=== PATIENT | male | born 1955 | race Caucasian/White ===

== ENCOUNTER 2016-10-13 09:28 | Day surgery (SDC) | payer MEDICARE, MEDICAID ==
[~2016-10-13] VITALS: Ht 188 cm; Wt 86.2 kg
[~2016-10-13 09:28] MED LIST: ACETAMINOPHEN500 M3 PO; ADVAIR 250/5028 PUFF IN; ALIGN4 MG PO; ANTACID PO; ASPIRIN325 M1 PO; ATENOLOL50 MG PO; BENZTROPINE 1MG1 MG PO; BENZTROPINE MESY1 MG PO; BUSPAR 5MG TAB5 MG PO; BUSPIRONE HCL15 MG PO; CARDURA 1MG TAB1 MG PO; COGENTIN GENERIC1 MG PO; COMBIVENT INH14.7 GM IN; CORTISPORIN OTI10 M1 OT; DIAZEPAM2 MG PO; DOXAZOSIN 4MG TA4 MG PO; DULCOLAX 5MG TAB5 MG PO; Docusate Sodiu100 MG PO; FLEXERIL10 MG PO; FLONASE 50 MCG16 GM; FLUTICASONE 50M16 GM; IBUPROFEN800 MG PO; IMODIUM 2MG. CAP2 MG PO; LIDODERM 5% PA1 EACH TD; LIPITOR10 MG PO; LISINOPRIL 5MG T5 MG PO; LOPERAMIDE2 MG PO; LORATADINE 10MG10 M1 PO; LORTAB 5/500 501 TAB PO; LYRICA300 MG PO; MIRALAX(PO17 GM/1 PA PO; MIRALAX17 GM PO; NAPROXEN SODIU500 MG PO; NORCO 325 MG-51 TAB PO; OMNICEF 300 MG300 MG PO; OSCAL 500MG. T500 MG PO; PERCOCET1 TA1 PO; PERPHENAZINE4 MG PO; PLAVIX 75MG TAB75 MG PO; PREDNISONE 10MG10 MG PO; PREDNISONE 20MG20 MG PO; PROAIR HFA0.09 MG/AC IH; PROMETHAZINE25 M1 PO; PROSCAR 5MG TABL5 MG PO; RISPERDAL 1 MG T1 MG PO; RISPERDAL3 MG PO; RISPERIDONE2 M1 PO; ROBAFEN100 MG/5 M PO; ROBITUSSIN DM S10 ML NG; SALMETEROL-F28 PUFFS IN; SEPTRA DS 800 M1 TAB PO; SEROQUEL 100MG100 MG PO; SIME PO; SYMBICORT1 AE1 IH; TRAMADOL 50MG T50 MG PO; TRAZODONE100 MG PO; Tramadol HCl50 MG PO; VALIUM 2MG TABLE2 MG PO; VENLAFAXINE225 MG PO; VISTARIL25 MG PO; VISTARIL50 MG PO; VITAMIN B COMPL1 CAP PO; ZANAFLEX4 MG NG; ZANAFLEX4 MG PO; ZANTAC 150150 MG PO; ZANTAC 300300 MG PO; ZITHROMAX Z-PA250 M2 PO; [UNRECOGNIZED DRUG - CODE] PO
[2016-10-13 11:25] LABS: BUN 5 mg/dL (7-18); GFR (ESTIMATED) 137 ML/MIN (>60)
--- NOTE | 2016-10-13 14:31 | Operative Note ---
Procedure/Operative Record Date of Procedure: 10/13/16 Referring physician: Dr. Roach Pre-op diagnosis: 1. Trigger finger, LEFT middle finger 2. Trigger finger, LEFT ring finger Post-op diagnosis: 1. Trigger finger, LEFT middle finger 2. Trigger finger, LEFT ring finger Procedure performed: 1. Release A1 aleyda (trigger finger), LEFT middle finger 2. Release A1 aleyda (trigger finger), LEFT ring finger Surgeon: CIRA MEDINA,MINGO OSMAN Tire Molder(s): Millie Curran Anesthesia: [place]o's block with IV sedation Indications: Patient is a 61-year-old gentleman with recurrent triggering of his LEFT middle and ring fingers. He had symptoms for over one year which failed to respond satisfactorily to conservative management including steroid injections. As the patient failed to respond adequately to conservative management and reports significant pain, disability and dysfunction with his LEFT hand surgical release of the A1 pulleys was necessary to relieve symptoms, improve function and decrease the pain and to prevent permanent stiffness and damage. Findings: The intraoperative findings showed very thickened and inflamed A1 pulleys of both middle and ring fingers. Also there was synovitis of the flexor tendon sheath. The flexors tendons are thickened and somewhat degenerate but there is no complete tear. There was no evidence of any space-occupying lesions over the tendons or within the A1 pulleys. Description of procedure: On the day of the surgery the patient was met in the preoperative area. Patient was positively identified and the operative site was marked and initialed by me. A physical examination was performed and the chart was updated. I again discussed the procedure, risks and benefits and alternatives with the patient. The complications discussed include but are not limited to- infection, injury to nerves, tendons and blood vessels, incisional scar (cosmesis), scar tenderness/ contracture, DVT/PE, finger stiffness, bowstringing of the tendons, CRPS ( complex regional pain syndrome- pain, sensory and temperature changes, swelling and stiffness), painful scar, incomplete relief of pain, incomplete return of function, recurrence and likely need for further surgery in future and also the risks of anesthesia including heart attack, stroke, and even . I have discussed how there is a small but real possibility of loss of use of the arm, loss of the limb [amputation] or loss of life itself. I have also explained how additional surgery may be required if there are any complications or recurrence. We have also discussed the postoperative recovery and rehabilitation required, the likely need for hand therapy, the possibility of stiffness, chronic pain and we've also discussed the option of nonsurgical treatment. We have also discussed the anesthetic options which include local, regional and general. Patient expressed a preference for a regional Juan Carlos's block. Patient asked appropriate questions and all have been answered by me. Patient wished to proceed with the surgery. Consent form was reviewed and signed. The patient was brought to the operating room and placed supine on the operating table. The LEFT upper extremity was placed over a side table. All the bony prominences were well-padded. A well-padded double cuff tourniquet was placed over the LEFT upper arm and the limb was exsanguinated with the Esmarch bandage and tourniquet was inflated to 250 mmHg. A Biers block was administered by the technical training instructor. Please see nursing records for the total tourniquet time. The LEFT upper extremity was prepped and draped in the usual sterile fashion. A preprocedure timeout was performed as per hospital policy. The skin incisions were marked separately for each finger just distal to the distal palmar crease. Next, a transverse incision approximately 1.5 cm in length was made just distal to the distal palmar crease, in line with the medial finger. Dissection was carried down through the subcutaneous fat down to the level of the flexor tendon sheath with care taken to identify and protect the neurovascular bundles. The sheath was opened under direct vision with a scalpel, and then a scissor was used to release it under direct vision from the proximal extent of the A1 aleyda to just proximal to the proximal digital crease. The flexor tendon sheath was noted to be very inflamed and thickened. After incision of the A1 aleyda, the finger was taken through a full range of motion. The tendons were identified and atraumatically pulled to ensure that no triggering remained. No further triggering or locking was noted. We then performed a similar procedure for the ring finger and released the A1 aleyda completely. Again the flexor tendons were noted to be thickened and there was synovitis of the flexor tendon sheath. The finger was taken through a range of motion and no further triggering was noted. The patient was asked to actively flex and extend his fingers, and he did not note any catching or locking. Both the wounds were then thoroughly irrigated with normal saline. The tourniquet was deflated. Meticulous hemostasis was obtained with bipolar electrocautery. The skin incisions were closed with 5-0 nylon sutures. The skin and soft tissue around the incision were then infiltrated with 10 mL of 0.5 percent Marcaine for postoperative pain relief. Sterile dressings and a compression bandage was applied. The tourniquet cuff was removed from the arm. The patient was then transferred onto the [facility] and transported to the postoperative recovery area in stable condition. The swab, instrument and needle counts were correct according to the scrub team at the end of the procedure. Patient tolerated the procedure well and there were no immediate complications. Patient was discharged home with appropriate written instructions after a period of observation in the postoperative area. Follow-up in my office in 2-3 days time for change of dressings and then in 10-14 days time for removal of sutures. EBL (ml): 5 Implant: None Complications: None Specimens: None
[2016-10-13 14:38] VITALS: BP 169/100
[2016-10-15] MEDS ORDERED: ASPIRIN 81MG TA81 MG PO (02:48)
[2016-10-15] MEDS ORDERED: BUSPIRONE HCL15 MG PO (02:49)
[2016-10-15] MEDS ORDERED: CARDURA 4MG TABL4 MG PO (02:53)
[2016-10-15] MEDS ORDERED: QUETIAPINE FUM400 MG PO (08:48)
[2016-10-15] MEDS ORDERED: CARBAMAZEPINE200 M1 PO (08:53)
[2016-10-15] MEDS ORDERED: DITROPAN XL10 M1 PO (08:55)
[2016-10-15] MEDS ORDERED: ATIVAN1 MG PO (08:56)
[2016-10-15] MEDS ORDERED: TRAMADOL 50MG T50 M1 PO (08:56)
[2016-10-15] MEDS ORDERED: FLONASE 50 MCG16 GM NS (08:58)
[2016-10-15] MEDS ORDERED: HYDROCODONE-APA1 TA1 PO (10:36)
[2016-10-15] MEDS ORDERED: BACTROBAN2% TP (10:39)
[2016-10-15] MEDS ORDERED: GERI-LANTA355 ML PO (10:40)
[2016-10-15] MEDS ORDERED: MAGMTHWSH PO (10:42)
[2016-10-15] MEDS ORDERED: OXCARBAZEPINE600 M1 PO (10:43)
== END 2016-10-13 14:11 | disposition home or self-care (01) ==
LOC: SDC 09:28
PROVIDERS: Orthopaedic Surgery
DX: M65.332 Trigger finger, left middle finger (principal); M65.342 Trigger finger, left ring finger

== ENCOUNTER 2017-01-02 07:52 | Emergency (ER) | payer MEDICARE, MEDICAID ==
[~2017-01-02] VITALS: Ht 188 cm; Wt 81.2 kg
[~2017-01-02 07:52] MED LIST changes: +ASPIRIN 81MG TA81 MG PO; +ATIVAN1 MG PO; +BACTROBAN2% TP; +CARBAMAZEPINE200 M1 PO; +CARDURA 4MG TABL4 MG PO; +DITROPAN XL10 M1 PO; +FLONASE 50 MCG16 GM NS; +FUROSEMIDE40 MG PO; +GERI-LANTA355 ML PO; +HYDROCODONE-APA1 TA1 PO; +KEFLEX 500MG.500 MG PO; +MAGMTHWSH PO; +OXCARBAZEPINE600 M1 PO; +QUETIAPINE FUM400 M2 PO; +QUETIAPINE FUM400 MG PO; +TRAMADOL 50MG T50 M1 PO
--- OUTSIDE RECORDS SUMMARY | 2017-01-02 08:18 | External Medical Summary Rpt ---
Demographics Preferred Language Irish Marital Status Unknown Advent Affiliation Unknown Race Unknown Ethnic Group Unknown Author Author , ASHLYN FRANCOIS Address Unknown Phone Immunization Unable to retrieve immunization data due to connection failure with Immunization Registry. Please try again later.
--- OUTSIDE RECORDS SUMMARY | 2017-01-02 08:18 | External Medical Summary Rpt ---
Demographics Preferred Language Sinhala Marital Status Unknown Spiritism Affiliation Unknown Race Unknown Ethnic Group Unknown Author Author , ASHLYN FRANCOIS Address Unknown Phone Immunization Unable to retrieve immunization data due to connection failure with Immunization Registry. Please try again later.
--- OUTSIDE RECORDS SUMMARY | 2017-01-02 08:18 | External Medical Summary Rpt ---
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 Name Role Phone Ling Garcia MD, Unavailable Unavailable Ling Garcia MD Purpose Continuity of Care Document - 02-10-2013 through 2016 Problems Code Diagnosis DOS Provider Status 305.1 305.1 06-28-2013 Herbie TOBACCO USE [facility] 401.9 401.9 06-28-2013 Herbie HYPERTENSIO [facility] [id number] CHR 06-28-2013 Herbie AIRWAY [phone] 06-28-2013 Herbie CONTUSION [facility] FACE/SCALP/ Hospital NCK E849.7 E849.7 06-28-2013 Herbie ACCID IN [facility] INSTIT E885.9 E885.9 FALL 06-28-2013 Herbie FROM [facility] SLIPPING, Hospital TRIPPING, OR STUMBLING NEC 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[place], 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 I25.83 Coronary atheroscler osis due to lipid rich plaque [id number] J44.1 CHRONIC OBSTRUCTIVE PULMONARY DISEASE W (ACUTE) EXACERBATIO N K56.7 ILEUS, UNSPECIFIED L72.3 SEBACEOUS CYST R07.9 CHEST PAIN, UNSPECIFIED R10.9 UNSPECIFIED ABDOMINAL PAIN S00.91XA ABRASION OF UNSPECIFIED PART OF HEAD, INITIAL ENCOUNTER S00.93XA CONTUSION OF UNSPECIFIED PART OF HEAD, INITIAL ENCOUNTER S16.1XXA STRAIN OF MUSCLE, FASCIA AND TENDON AT NECK LEVEL, INIT W19.XXXA UNSPECIFIED FALL, INITIAL ENCOUNTER Z01.810 Encounter for preprocedur al cardiovascu lar examination Z01.818 ENCOUNTER FOR OTHER PREPROCEDUR AL EXAMINATION Z95.5 Presence of coronary angioplasty implant and graft Allergies, Adverse Reactions, Alerts Type Allergy to substance Drug Allergy Adverse Reaction to Substance Substance Reaction Severity STAFLEX ITCHING Unknown [place] I-RASH Mild Ketorolac I-ITCHING Mild Phenyltoloxamine I-ITCHING Unknown Medications Na ND Rx Da Fi Fi Am Da Di Ph RX Ph St me C No te ll ll ou ys ag ar # ys at rm s nt no ma ic us Or Da si cy ia de te s n re d SO 00 09 0 No DI 40 -0 UM 97 6- Lo 98 20 ng CH 30 13 er LO 9 RI Ac DE ti ve 0. 9% SO SHADY TI ON Sa 63 09 0 No li 80 -0 ne 70 6- Lo 10 20 ng Fl 07 13 er us 5 h Ac 10 ti ML ve Sy ri ng e HY [address] 40 -0 OC 60 6- Lo OD 36 20 ng ON 66 13 er -A 2 CE Ac TA ti NH ve NO PH 7. 5- 32 5 Vital Signs 06-28-2013 23:40 Name Value Interpretat Reference Comment ion Range Body 98.2 [degF] Temperature BP 76 mm[Hg] Diastolic BP Systolic 134 mm[Hg] Heart 88 /min Rate/Pulse O2% 92 % Respiratory 20 /min Rate 06-28-2013 22:59 Name Value Interpretat Reference Comment ion Range BP 94 mm[Hg] Diastolic BP Systolic 162 mm[Hg] Heart 72 /min Rate/Pulse O2% 96 % Respiratory 20 /min Rate 02-10-2013 13:26 Name Value Interpretat Reference Comment ion Range Body 97.8 [degF] Temperature BP 104 mm[Hg] Diastolic BP Systolic 149 mm[Hg] Heart 70 /min Rate/Pulse O2% 95 % Respiratory 20 /min Rate 02-10-2013 10:50 Name Value Interpretat Reference Comment ion Range BP 42 mm[Hg] Diastolic BP Systolic 114 mm[Hg] Heart 76 /min Rate/Pulse O2% 95 % Respiratory 20 /min Rate Results Labs Lab Lab Date Result Refere Interp Status Commen Order Detail nces retati t Range on Differential panel, method unspecified - (12-10-2016 06:00) LYMPH 16 % 10% - Normal complet 017 50% ed 06:00 Platele NORMAL complet ts 017 ed [Presen 06:00 ce] in Blood by Light microsc opy COMPREHENSIVE METABOLIC PANEL (02-10-2013 10:45) Glucose 114 74-106 complet 013 mg/dL ed Bld-mCn 10:45 c BUN 5 mg/dL 7-18 complet Bld-mCn 013 ed c 10:45 Creat 1.0 0.8-1.3 complet SerPl-m 013 mg/dL ed Cnc 10:45 ESTIMAT 114 50-200 complet ED 013 ML/MIN ed CREATIN 10:45 INE CLEARAN CE GFR 77 Greater complet (ESTIMA 013 ML/MIN than ed SHANNON) 10:45 60 Sodium 139 136-145 complet SerPl-s 013 mmoL/L ed Cnc 10:45 Potassi 3.9 3.5-5.1 complet um 013 mmoL/L ed SerPl-s 10:45 Cnc Chlorid 100 98-107 complet e 013 mmoL/L ed SerPl-s 10:45 Cnc CO2 30 21.0-32 complet SerPl-s 013 mmoL/L .0 ed Cnc 10:45 Calcium 8.9 8.5-10. complet 013 mg/dL 1 ed SerPl-m 10:45 Cnc Prot 7.4 6.4-8.2 complet SerPl-m 013 gm/dL ed Cnc 10:45 Albumin 4.3 3.4-5.0 complet 013 gm/dL ed SerPl-m 10:45 Cnc Globuli 3.1 1.3-3.2 complet n 013 gm/dL ed Ser-mCn 10:45 c Albumin 1.4 UNK 1.1-1.8 complet /Glob 013 ed SerPl-m 10:45 Rto Bilirub 0.5 0.2-1.0 complet 013 mg/dL ed SerPl-m 10:45 Cnc AST 19 U/L 15-37 complet SerPl-c 013 ed Cnc 10:45 ALT 30 U/L 30-65 complet SerPl-c 013 ed Cnc 10:45 ALP 136 U/L 50-136 complet SerPl-c 013 ed Cnc 10:45 CBC with AUTO DIFF (02-10-2013 10:45) WBC # 09-06-2 6.7 4.8-10. complet Bld 013 K/MM3 8 ed Auto 10:45 RBC # 09-06-2 5.86 4.6-6.2 complet Bld 013 M/mm3 ed Auto 10:45 Hgb -06-2 18.3 14.1-18 High complet Bld-mCn 013 g/dL .0 alert ed c 10:45 Hct Fr -06-2 53.7 % 42.0-52 complet Bld 013 .0 ed 10:45 MCV RBC -06-2 91.7 fl 82.2-97 complet 013 .8 ed 10:45 MCH RBC -06-2 31.2 pg 27-31.2 complet Qn 013 ed Auto 10:45 MEAN -06-2 34.0 31.8-35 complet CORPUSC 013 g/dl .4 ed ULAR 10:45 HGB CONC RDW RBC -06-2 15.7 % 11.5-17 complet Auto 013 .5 ed 10:45 Platele -06-2 163 142-424 complet t Bld 013 K/mm3 ed Ql 10:45 Manual MEAN -06-2 8.5 fl 7.4-10. complet PLATELE 013 4 ed T 10:45 VOLUME Granulo -06-2 75.2 % 37.0-80 complet cytes 013 .0 ed Fr Bld 10:45 Auto LYMPH % 09-06-2 15.5 % 10-50 complet 013 ed 10:45 Monocyt -06-2 6.1 % 1.7-9.3 complet es Fr 013 ed Bld 10:45 Auto Eosinop 09-06-2 2.1 % 0.1-12. complet hil Fr 013 0 ed Bld 10:45 Auto Basophi 09-06-2 0.9 % 0.1-2.0 complet ls Fr 013 ed Bld 10:45 Auto Granulo 09-06-2 5.1 1.3-8.0 complet cytes # 013 K/mm3 ed Bld 10:45 Auto Lymphoc 09-06-2 1.0 0.7-4.5 complet ytes Fr 013 K/mm3 ed Bld 10:45 Auto Monocyt 09-06-2 0.4 0.1-1.0 complet es # 013 K/mm3 ed Bld 10:45 Auto Eosinop 0.1 0.0-0.4 complet hil # 013 K/mm3 ed Bld 10:45 Auto Basophi 0.1 0-0.2 complet ls # 013 K/MM3 ed Bld 10:45 Auto Encounters Encounter Start End Date Code Location Performer Type Date Emergency MANAV Garcia MD (ER) 4 22:23 4 23:42 [facility] Emergency MANAV BRIONES (ER) 3 10:44 3 13:55 [facility] ORIANA
--- OUTSIDE RECORDS SUMMARY | 2017-01-02 08:18 | External Medical Summary Rpt ---
Author Author , ALESSANDRO FRANCOIS Address Unknown Phone [email or web address] Care Team Providers Care Reverberatory Skimmer Name Role Phone Ling Garcia MD, Unavailable Unavailable Ling Garcia MD Purpose Continuity of Care Document - 02-10-2013 through 2016 Problems Code Diagnosis DOS Provider Status 305.1 305.1 06-28-2013 Herbie TOBACCO USE [facility] 401.9 401.9 06-28-2013 Herbie HYPERTENSIO [facility] [phone] CHR 06-28-2013 [facility]bie [phone] 06-28-2013 Herbie CONTUSION [facility] FACE/SCALP/ Hospital NCK E849.7 E849.7 06-28-2013 Herbie ACCID IN [facility] INSTIT E885.9 E885.9 FALL 06-28-2013 Herbie FROM [facility] SLIPPING, Hospital TRIPPING, OR STUMBLING NEC 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 5- 32 5 [...] Garcia MD (ER) 4 22:23 4 23:42 [facility] Emergency MANAV BRIONES (ER) 3 10:44 3 13:55 [facility] ORIANA
--- OUTSIDE RECORDS SUMMARY | 2017-01-02 08:19 | External Medical Summary Rpt ---
Author Author ALESSANDRO Pennington, [employer] Organization [employer] Address Unknown Phone Unavailable Results CBC W Auto Differential panel in Blood Observa Value Referen Units Interpr Notes Date tion ce etation Range Basophils 0 - 0.2 K/MM3 Normal No Dec 10 informati 2016 6:00 [#/volume on in AM ] in source Blood by data Automated count Basophils 0.1 - 2.0 % Normal No Dec 10 informati 2016 6:00 leukocyte on in AM s in source Blood by data Automated count Eosinophi 0.0 - 0.4 K/mm3 Normal No Dec 10 ls informati 2016 6:00 [#/volume on in AM ] in source Blood by data Automated count Eosinophi 0.1 - % Normal No Dec 10 ls/100 12.0 informati 2016 6:00 leukocyte on in AM s in source Blood by data Automated count Granulocy 1.3 - 8.0 K/mm3 High No Dec 10 jany informati 2017 6:00 [#/volume on in AM ] in source Blood by data Automated count Granulocy 37.0 - % High No Dec 10 jany/100 80.0 informati 2016 6:00 leukocyte on in AM s in source Blood by data Automated count Hematocri 42.0 - % Normal No Dec 10 t [Volume 52.0 informati 2016 6:00 on in AM Fraction] source of Blood data Hemoglobi 14.1 - g/dL Normal No Dec 10 n 18.0 informati 2016 6:00 [Mass/vol on in AM ume] in source Blood data Lymphocyt 0.7 - 4.5 K/mm3 Normal No Dec 10 es informati 2016 6:00 [#/volume on in AM ] in source Unspecifi data ed specimen by Automated count Lymphocyt 10 - 50 % Low No Dec 10 es informati 2016 6:00 [#/volume on in AM ] in source Unspecifi data ed specimen by Automated count Erythrocy 27 - 31.2 pg Normal No Dec 10 te mean informati 2016 6:00 corpuscul on in AM ar source hemoglobi data n [Entitic mass] Erythrocy 31.8 - g/dl Normal No Dec 10 te mean 35.4 informati 2016 6:00 corpuscul on in AM ar source hemoglobi data n concentra tion [Mass/vol ume] by Automated count Erythrocy 82.2 - fl Normal No Dec 10 te mean 97.8 informati 2016 6:00 corpuscul on in AM ar volume source [Entitic data volume] by Automated count Monocytes 0.1 - 1.0 K/mm3 Normal No Dec 10 inform2016 6:00 [#/volume on in AM ] in source Blood by data Automated count Monocytes 1.7 - 9.3 % Normal No Dec 10 informati 2016 6:00 leukocyte on in AM s in source Blood by data Automated count Platelet 7.4 - fl Low No Dec 10 mean 10.4 informati 2016 6:00 volume on in AM [Entitic source volume] data in Blood by Automated count Platelets 142 - 424 K/mm3 Normal No Dec 10 informati 2016 6:00 [#/volume on in AM ] in source Blood data Erythrocy 4.6 - 6.2 M/mm3 Normal No Dec 10 jany informati 2016 6:00 [#/volume on in AM ] in source Amniotic data fluid Erythrocy 11.5 - % Normal No Dec 10 te 17.5 informati 2017 6:00 distribut on in AM ion width source [Entitic data volume] by Automated count Leukocyte 4.8 - K/MM3 Normal No Dec 10 s 10.8 informati 2016 6:00 [#/volume on in AM ] in source Blood data Differential panel, method unspecified - Observa Value Referen Units Interpr Notes Date tion ce etation Range Neutrophi 0 - 8 % Normal No Dec 10 ls.band informati 2017 6:00 form/100 on in AM leukocyte source s in data Blood by Automated count LYMPH 16 10 - 50 % Normal No Dec 10 inform2016 tion in 6:00 AM source data Monocytes 2 - 9 % Normal No Dec 10 informati 2016 6:00 leukocyte on in AM s in source Blood by data Automated count Platele NORMAL No No No No Dec 10 ts informa informa informa informa 2016 [Presen tion in tion in tion in tion in 6:00 AM ce] in source source source source Blood data data data data by Light microsc opy Neutrophi 42 - 76 % High No Dec 10 ls informati 2016 6:00 [#/volume on in AM ] in source Blood by data Automated count Cells No #CELLS No No Dec 10 Counted informati informati informati 2017 6:00 Total [#] on in on in on in AM in Blood source source source data data data Basic metabolic panel in Blood Observa Value Referen Units Interpr Notes Date tion ce etation Range Urea 7 - 18 mg/dL Low No Dec 10 nitrogen informati 2016 6:00 [Mass/vol on in AM ume] in source Serum or data Plasma Calcium 8.5 - mg/dL Normal No Dec 10 [Mass/vol 10.1 informati 2016 6:00 ume] in on in AM Serum or source Plasma data Chloride 98 - 107 mmoL/L Low No Dec 10 [Moles/vo informati 2016 6:00 lume] in on in AM Serum or source Plasma data Carbon 21.0 - mmoL/L Normal No Dec 10 dioxide, 32.0 informati 2016 6:00 total on in AM [Moles/vo source lume] in data Serum or Plasma Creatinin 0.70 - mg/dL Low No Dec 10 e 1.30 informati 2016 6:00 [Mass/vol on in AM ume] in source Serum or data Plasma Creatinin 50 - 200 ML/MIN No No Dec 10 e renal informati informati 2017 6:00 clearance on in on in AM source source predicted data data by Cockcroft -Gault formula Estimated >60 ML/MIN No REFERENCE Dec 10 informati RANGE: 2017 6:00 glomerula on in >60 AM r source ML/MIN/1. filtratio data 73 SQUARE n rate METERSIf (GF this patient is -A merican, then multiply theresult by 1.210. Glucose 74 - 106 mg/dL Normal No Dec 10 [Mass/vol informati 2016 6:00 ume] in on in AM Serum or source Plasma data Potassium 3.5 - 5.1 mmoL/L Normal No Dec 10 informati 2017 6:00 [Moles/vo on in AM lume] in source Serum or data Plasma Sodium 136 - 145 mmoL/L Low No Dec 10 [Moles/vo informati 2016 6:00 lume] in on in AM Serum or source Plasma data CBC W Auto Differential panel in Blood Observa Value Referen Units Interpr Notes Date tion ce etation Range Basophils 0 - 0.2 K/MM3 Normal No Dec 092016 2:50 [#/volume on in AM ] in source Blood by data Automated count Basophils 0.1 - 2.0 % Normal No Dec 09 /100 informati 2016 2:50 leukocyte on in AM s in source Blood by data Automated count Eosinophi 0.0 - 0.4 K/mm3 Normal No Dec 09 ls 2016 2:50 [#/volume on in AM ] in source Blood by data Automated count Eosinophi 0.1 - % Normal No Dec 09 ls/100 12.0 informati 2016 2:50 leukocyte on in AM s in source Blood by data Automated count Granulocy 1.3 - 8.0 K/mm3 Normal No Dec 09 jany 2016 2:50 [#/volume on in AM ] in source Blood by data Automated count Granulocy 37.0 - % High No Dec 09 jany/100 80.0 ati 2016 2:50 leukocyte on in AM s in source Blood by data Automated count Hematocri 42.0 - % Low No Dec 09 t [Volume 52.0 ati 2016 2:50 on in AM Fraction] source of Blood data Hemoglobi 14.1 - g/dL Low No Dec 09 n 18.0 2016 2:50 [Mass/vol on in AM ume] in source Blood data Lymphocyt 0.7 - 4.5 K/mm3 Normal No Dec 09 es 2016 2:50 [#/volume on in AM ] in source Unspecifi data ed specimen by Automated count Lymphocyt 10 - 50 % Low No Dec 09 es 2016 2:50 [#/volume on in AM ] in source Unspecifi data ed specimen by Automated count Erythrocy 27 - 31.2 pg Normal No Dec 09 te mean informati 2016 2:50 corpuscul on in AM ar source hemoglobi data n [Entitic mass] Erythrocy 31.8 - g/dl Normal No Dec 09 te mean 35.4 informati 2016 2:50 corpuscul on in AM ar source hemoglobi data n concentra tion [Mass/vol ume] by Automated count Erythrocy 82.2 - fl Normal No Dec 09 te mean 97.8 informati 2016 2:50 corpuscul on in AM ar volume source [Entitic data volume] by Automated count Monocytes 0.1 - 1.0 K/mm3 Normal No Dec 09 inform2016 2:50 [#/volume on in AM ] in source Blood by data Automated count Monocytes 1.7 - 9.3 % Normal No Dec 09 inform2016 2:50 leukocyte on in AM s in source Blood by data Automated count Platelet 7.4 - fl Low No Dec 09 mean 10.4 informati 2016 2:50 volume on in AM [Entitic source volume] data in Blood by Automated count Platelets 142 - 424 K/mm3 Normal No Dec 09 informati 2016 2:50 [#/volume on in AM ] in source Blood data Erythrocy 4.6 - 6.2 M/mm3 Normal No Dec 09 jany 2016 2:50 [#/volume on in AM ] in source Amniotic data fluid Erythrocy 11.5 - % Normal No Dec 09 te 17.5 informati 2016 2:50 distribut on in AM ion width source [Entitic data volume] by Automated count Leukocyte 4.8 - K/MM3 Normal No Dec 09 s 10.8 informati 2016 2:50 [#/volume on in AM ] in source Blood data Oxygen saturation in Arterial blood Observa Value Referen Units Interpr Notes ti ce etation Range Oxygen 90 - 100 % Low No Nov 19 saturatio 2016 n in on in 10:52 AM 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 Value Referen Units Interpr Notes ce etation Range VENOUS 80.2 75 - 80 % High No Nov 19 O2 SAT informa 2017 CATH tion in 10:52 LAB source AM data CBC W Auto Differential panel in Blood Observa Value Referen Units Interpr Notes Date tion ce etation Range Basophils 0 - 0.2 K/MM3 Normal No Nov 19 informati 2016 8:25 [#/volume on in AM ] in source Blood by data Automated count Basophils 0.1 - 2.0 % Normal No Nov 19 informati 2016 8:25 leukocyte on in AM s in source Blood by data Automated count Eosinophi 0.0 - 0.4 K/mm3 Normal No Nov 19 ls informati 2016 8:25 [#/volume on in AM ] in source Blood by data Automated count Eosinophi 0.1 - % Normal No Jeremiah 15 ls/100 12.0 informati 2016 8:25 leukocyte on in AM s in source Blood by data Automated count Granulocy 1.3 - 8.0 K/mm3 Normal No Nov 15 jany informati 2016 8:25 [#/volume on in AM ] in source Blood by data Automated count Granulocy 37.0 - % Normal No Nov 15 jany/100 80.0 informati 2016 8:25 leukocyte on in AM s in source Blood by data Automated count Hematocri 42.0 - % Low No Nov 15 t [Volume 52.0 informati 2016 8:25 on in AM Fraction] source of Blood data Hemoglobi 14.1 - g/dL Low No Nov 15 n 18.0 informati 2016 8:25 [Mass/vol on in AM ume] in source Blood data Lymphocyt 0.7 - 4.5 K/mm3 Normal No Nov 15 es informati 2016 8:25 [#/volume on in AM ] in source Unspecifi data ed specimen by Automated count Lymphocyt 10 - 50 % Normal No Nov 15 es informati 2016 8:25 [#/volume on in AM ] in source Unspecifi data ed specimen by Automated count Erythrocy 27 - 31.2 pg Normal No Nov 15 te mean informati 2016 8:25 corpuscul on in AM ar source hemoglobi data n [Entitic mass] Erythrocy 31.8 - g/dl Normal No Nov 15 te mean 35.4 informati 2016 8:25 corpuscul on in AM ar source hemoglobi data n concentra tion [Mass/vol ume] by Automated count Erythrocy 82.2 - fl Normal No Nov 15 te mean 97.8 informati 2016 8:25 corpuscul on in AM ar volume source [Entitic data volume] by Automated count Monocytes 0.1 - 1.0 K/mm3 Normal No Nov 15 informati 2016 8:25 [#/volume on in AM ] in source Blood by data Automated count Monocytes 1.7 - 9.3 % Normal No Nov 15 /100 informati 2016 8:25 leukocyte on in AM s in source Blood by data Automated count Platelet 7.4 - fl Normal No Nov 15 mean 10.4 informati 2016 8:25 volume on in AM [Entitic source volume] data in Blood by Automated count Platelets 142 - 424 K/mm3 Normal No Nov 15 informati 2017 8:25 [#/volume on in AM ] in source Blood data Erythrocy 4.6 - 6.2 M/mm3 Low No Nov 15 jany informati 2017 8:25 [#/volume on in AM ] in source Amniotic data fluid Erythrocy 11.5 - % Normal No Jeremiah 15 te 17.5 informati 2017 8:25 distribut on in AM ion width source [Entitic data volume] by Automated count Leukocyte 4.8 - K/MM3 Normal No Nov 15 s 10.8 informati 2017 8:25 [#/volume on in AM ] in source Blood data Basic metabolic panel in Blood Observa Value Referen Units Interpr Notes Date tion ce etation Range Urea 7 - 18 mg/dL Normal No Nov 15 nitrogen informati 2017 8:10 [Mass/vol on in AM ume] in source Serum or data Plasma Calcium 8.5 - mg/dL Normal No Nov 15 [Mass/vol 10.1 informati 2017 8:10 ume] in on in AM Serum or source Plasma data Chloride 98 - 107 mmoL/L Low No Nov 15 [Moles/vo informati 2017 8:10 lume] in on in AM Serum or source Plasma data Carbon 21.0 - mmoL/L Normal No Nov 15 dioxide, 32.0 informati 2017 8:10 total on in AM [Moles/vo source lume] in data Serum or Plasma Creatinin 0.70 - mg/dL Low No Nov 15 e 1.30 informati 2017 8:10 [Mass/vol on in AM ume] in source Serum or data Plasma Estimated >60 ML/MIN No REFERENCE Jeremiah 15 informati RANGE: 2017 8:10 glomerula on in >60 AM r source ML/MIN/1. filtratio data 73 SQUARE n rate METERSIf (GF this patient is -A merican, then multiply theresult by 1.210. Glucose 74 - 106 mg/dL Normal No Nov 15 [Mass/vol informati 2017 8:10 ume] in on in AM Serum or source Plasma data Potassium 3.5 - 5.1 mmoL/L Normal SLIGHT Nov 19 HEMOLYSIS 2017 8:10 [Moles/vo NOTICED, AM lume] in K MAY BE Serum or FALSELY Plasma ELEVATED. LAB.STJ Sodium 136 - 145 mmoL/L Low No Nov 15 [Moles/vo informati 2017 8:10 lume] in on in AM Serum or source Plasma data ST STRESS TEST LEXISCAN Observa Value Referen Units Interpr Notes Date ti ce etation Range Exercis No No No No Jun 18 e ECG informa informa informa informa 2016 Report\ tion in tion in tion in tion in 10:28 .br\St. source source source source AM data data data data [facility] Alireza Co\.br\ Interpr etive Stateme nts\.br \Stress Test Lexisca n\.br\R didier for Exam: pre-op clearan ce\.br\ Orderin g Diagnos is: pre-op clearan ce\.br\ Resting HR: 64 Peak HR: 79\.br\ Resting B/P 139/81 PeaK B/P 141/81\ .br\Fin dings:\ .br\1. Lexisca n 0.4 mg was given IV push at 30 seconds into protoco l.\.br\ 2. Lexisca n injecti on was done without low level exercis e.\.br\ 3. Termina tion of test due to protoco l complet ion.\.b r\4. Symptom s: slight SOB\.br \5. Aminoph ylline not given.\ .br\6. Resting ECG: Normal sinus rhythm. Indeter minate axis. Otherwi se normal\ .br\ECG .\.br\7 . Non-isc hemic ECG respons e to pharmac ologic stress. \.br\8. Nuclear perfusi on scan result reporte d separat shahriar.\.b r\Elect ronical ly Signed On 06-18-19 16 11:36:5 8 EST by Bry alexis MD NM MYOCARDIAL PERFUSION SPECT STRESS AND REST Observa Value Referen Units Interpr Notes Date ti ce etation Range This No No No No Jun 18 patient informa informa informa informa 2015 tion in in tion in ti in 9:58 AM receive source source source source d an data data data data examina tion at the [facility] are Vascula r Laborat ory.\.b r\The complet e report can be found in the [facility] ([facility]) Electro pat Medical Record of the patient . EC ECHOCARDIOGRAM COMPLETE W DOPPLER AND COLOR FLOW MAPPING Observa Value Referen Units Interpr Notes Date tion ce etation Range This No No No No Paxton 4 patient informa informa informa informa 2016 on in in in ti in 9:08 AM receive source source source source d an data data data data examina tion at the [facility] are Vascula r Laborat ory.\.b r\The complet e report can be found in the [facility] ([facility]) Electro pat Medical Record of the patient .
--- OUTSIDE RECORDS SUMMARY | 2017-01-02 08:19 | External Medical Summary Rpt ---
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 Value Referen Units Interpr Notes ce [...] source source AM data data data data [place]\.br\ Interpr etive Stateme nts\.br \Stress [...] data data data examina tion at the [facility] are Vascula r Laborat ory.\.b r\The complet e report can be found in the [facility] ([facility]) Electro pat Medical Record of the patient [...] data data data examina tion at the [facility] are Vascula r Laborat ory.\.b r\The complet e report can be found in the [facility] ([facility]) Electro pat Medical Record of the patient .
--- NOTE | 2017-01-02 08:24 | Emergency Room Report ---
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 N Clinical Suspician of Infection? N Mental Status: 1 - Regular (Normal Baseline) Sepsis Risk:Low Sepsis Risk Have you (or family members/close friends) recently traveled outside the [place]? N If Yes, where/when: Have you had exposure to infectious disease within the past month? N TB? Other? Specify: Patient brought in by EMS after falling out of bed. He has abrasions to his knees. He takes Plavix. He is c/o knee pain, left pelvis pain, and neck pain. No report of syncope. No new neurological symptoms. ALLERGIES Coded Allergies: ketorolac (From TORADOL) (I-RASH 10/15/16) lithium (I-RASH 10/15/16) Home Medications Active Scripts Bifidobacterium Infantis (Align) 4 MG PO DAILY #30 CAP Prov: 06/30/16 Polyethylene Glycol 3350 (Miralax) 17 GM PO DAILYP PRN CONSTIPATION #30 Prov: 06/30/16 CEPHALEXIN (Keflex 500MG Capsule) 500 MG PO Q8H #21 CAP Prov: 12/10/16 Reported Medications LISINOPRIL (Lisinopril) 5 MG PO DAILY Benztropine Mesylate 1 MG PO BID ATENOLOL (Atenolol 50MG) 50 MG PO DAILY Pregabalin (Lyrica 300MG) 300 MG PO BID CLOPIDOGREL BISULFATE (PLAVIX) 75 MG PO DAILY VENLAFAXINE HCL (Venlafaxine HCl ER) 225 MG PO DAILY Atorvastatin Calcium (Lipitor 10MG) 40 MG PO QHS Acetaminophen (Acetaminophen Extra Strength) 500 MG PO Q6HP PRN PAIN Trazodone Hcl (Trazodone HCl) 100 MG PO QHS Guaifenesin (Robafen) 10 ML PO Q4HP PRN COUGH Doxazosin Mesylate (Doxazosin 4MG Tablet) 4 MG PO BID ASPIRIN (Aspirin) 81 MG PO DAILY Buspirone Hcl 30 MG PO BID Oxybutynin Chloride (Ditropan XL) 10 MG PO QHS Lorazepam (Ativan 1MG) 1 MG PO Q4HP PRN ANXIETY Fluticasone Propionate (Flonase 50 Mcg Nasal [place]) 2 SPRAY NS DAILY Oxcarbazepine 600 MG PO BID Furosemide (Furosemide 40MG) 40 MG PO DAILY Albuterol-Ipratropium (Combivent Inhaler) 1 PUFFS IN QID Oyster Shell (Oscal 500MG Tablet) 500 MG PO BID Finasteride (Proscar 5MG Tablet) 5 MG PO DAILY MAG HYDROX/AL HYDROX/SIMETH (Sm Antacid-Antigas Liquid) 30 ML PO Q4HP PRN ACID/ INDIGESTION BUDESONIDE/FORMOTEROL FUMARATE (Symbicort 160-4.5 Mcg Inhaler) 2 PUFFS IH BID History Medical History General CAD? No Angina: No VT: Yes Hypertension? Yes Hyperlipidemia? Yes CHF? No DVT? No PE? No COPD? Yes Asthma? No Anemia? No GERD? No Gastric ulcers? No GI Bleed? No Hernia? No Thyroid Problems? No Hypothyroidism? No CVA? No Seizures? No Diabetes? No Renal Insuffiency? No End Stage Renal Disease? No UTI? Yes Stones? No BPH? No GB Disease: No Nephritic Syndrome? No Asplenia? No Hepatitis? No Sickle Cell Disease? No Arthritis? Yes Migraines? No Cataracts? No Glaucoma? No MRSA? No HIV? No TB? No Anxiety? Yes Depression? Yes Cancer? No More? No Immunization Hx DT/Tetanus Unknown Flu 2015-FSN Pneumonia Received In Past Surgical Hx Previous Surgery?Y LT KNEE GALLBLADDER STENT BACK SURGERY Family History Family Hx Diabetes Yes CAD Yes Hypertension Yes Hyperlipidemia Yes Cancer Yes TB No Social History Smoking Hx Smoker: Current Every Day Smoker Tobacco: Yes Type Cigarettes Packs/day < 1 Pack Alcohol Alcohol: No Review of Systems All Other Systems Reviewed and Negative Musculoskeletal see HPI Psychiatric/Neurological see HPI Physical Exam Vital Signs Vital Signs Date Time Temp Pulse Resp B/P Pulse O2 O2 Flow FiO2 Ox Delivery Rate 01/02 0940 96.1 70 20 169/95 95 01/02 0756 74 22 177/92 92 General Appearance normal appearance, WD/WN, no apparent distress Eye Exam - bilateral eye normal exam, bilateral eye PERRL, bilateral eye EOMI Neck normal inspection, non-tender, supple, full range of motion, head face and neck atraumatic; subjective neck pain Respiratory Status Yes: trachea midline, chest symmetrical, non tender chest. No: respiratory distress, tender on palpation, use of accessory muscles, pain on inspiration, pain on expiration, productive cough, non productive cough. Lung Sounds bilateral: normal breath sounds, lungs clear. 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 Pelvis stable to AP and lateral palpation. No rotation, no shortening, no crepitus, deformities or stepoffs; FROM all joints with no instability. 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 No Results/Orders Current Medication Orders Sig/Martinez Start time Last Medication Dose Route Stop Time Status Admin Acetaminophen 0 .STK-MED ONE 01/03 0834 DC PO Acetaminophen 650 MG ONCE ONE 01/02 830 DC 01/02 PO 01/02 831 0930 Orders Procedure Date/time Status DIET-NOTHING BY MOUTH 01/02 L Active GUEST TRAY 01/[address] SCAN REQ 01/[address] ABD/PELVIS REQ 01/[address] CHEST W/O CONTRAST 01/[address] CHEST SCAN REQ 01/[address] HEAD REQ 01/02 0816 Complete XRAY/CT/US XRAY/CT/US 1 XRAY chest, knee, pelvis XR interpretation by reviewed by me Xray Results old appearing bone fragment left knee, neg acute fx either knee but w/ pos DJD; CXR and pelvis reveal dilated LOB, will review CT abd/pelvis/ chest CT head (neg acute per [facility]), chest Time results known: 938 CT Results normal/NAD, no fracture seen, no infiltrates XRAY/CT/US [address] interpretation by reviewed by me ([facility] report reviewed), discussed w/ radiologist (also d/w our radiologist) Time results known: 954 CT Results normal/NAD (chronic colonic dilatation) XRAY/CT/US 3 CT C-spine CT interpretation by discussed w/radiologist Time results known: 1142 CT Results normal/NAD, no fracture seen Departure Departure Time of Disposition 1145 Disposition DC Home or Self Care(routine) Clinical Impression Primary Impression: Multiple contusions Secondary Impressions: Abrasion of knee, right Qualifiers: Encounter type: initial encounter Qualified Code: S80.211A - Abrasion, right knee, initial encounter Fall from bed Qualifiers: Encounter type: initial encounter Qualified Code: W06.XXXA - Fall from bed, initial encounter Condition STABLE Referrals Radha MEDINA,Thaddeus Bass (Family) Additional Instructions Tylenol over the counter as needed, see Dr. Garcia next week for recheck. Discharge Counseling Counseled pt/family regarding diagnosis, test results, medications/RX, home care, follow up needs ED Critical Care Critical Care No at 1146
--- NOTE | 2017-01-02 10:10 | RADIOLOGY REPORT PS360 ---
CT HEAD W/O CONTRAST COMPARISON: CT scan of brain noncontrast 12/24/2016 HISTORY: Patient fell, some amnesia TECHNIQUE: Multiple axial scans obtained from base skull to the vertex and were performed without contrast. FINDINGS: The base of skull appears grossly normal, the mastoids are clear. The basilar cisterns are prominent. There is mild arteriosclerotic calcification of the vertebral arteries bilaterally. The ventricular system is normal for age. There is no definite ischemic infarct and there is no bleed and there are no extra-axial fluid collections. The sylvian fissures and cortical sulci are somewhat prominent. The bony calvarium appears intact. IMPRESSION: Findings of mild cortical atrophy, no acute intracranial pathology identified.
--- NOTE | 2017-01-02 10:23 | RADIOLOGY REPORT PS360 ---
CT ABD PELVIS W/O CONTRAST COMPARISON: CT scan abdomen pelvis without contrast 12/09/2016 HISTORY: Patient fell complaining of abdominal pain TECHNIQUE: Multiaxial scans obtained from hemidiaphragms the pelvic floor and were performed without IV or oral contrast. Sagittal and coronal reformats were evaluated as well. FINDINGS: There is elevation of the right hemidiaphragm with dilated hepatic flexure the colon between the right hemidiaphragm and the liver. The liver spleen stomach and pancreas appear grossly normal. There has been a previous cholecystectomy. There is a small hiatal hernia. The adrenal glands are normal. The kidneys are normal size and in no calculi and is no obstructive uropathy of either kidney. Small bowel appears normal and the appendix is normal. There is large amount stool in the cecum and ascending colon and is prominent gaseous dilatation of the transverse colon in this was seen on the recent CT scan of 09 December. There is moderate dilatation of the urinary bladder, the prostate is normal. There is mild multilevel degenerative changes of the lower thoracic and lumbar spine but I see no compression fracture. IMPRESSION: Findings consistent with constipation and moderate degree of colonic ileus primarily involving the transverse colon, Along with hepatic interposition syndrome, no acute abdominal or pelvic pathology identified.
--- NOTE | 2017-01-02 10:27 | RADIOLOGY REPORT PS360 ---
PELVIS AP ONLY COMPARISON: AP pelvis 12/24/2016 HISTORY: Pelvic pain after a fall TECHNIQUE: AP pelvis FINDINGS: The iliac bones and pubic bones appear intact. Both hips are normally articulated with no evidence of fracture. The SI joints and symphysis pubis per normal though the SI joints and sacrum are poorly seen due to some overlying streak artifact. IMPRESSION: Pelvis grossly negative for fracture
--- NOTE | 2017-01-02 10:32 | RADIOLOGY REPORT PS360 ---
CHEST-PORTABLE COMPARISON: AP upright chest 12/24/2016 HISTORY: Chest pain after a fall TECHNIQUE: AP upright chest FINDINGS: This is a somewhat poor inspiration. Again noted is elevation right hemidiaphragm with prominent gaseous dilatation of the hepatic flexure of the colon between the hemidiaphragm and the liver as noted previously and consistent with the hepatic interposition syndrome. There is a subtle ill-defined opacity right upper lobe as noted previously and may represent post inflammatory scarring. Cardiac size is normal and the vascularity is normal. IMPRESSION: Nonacute chest findings
--- NOTE | 2017-01-02 10:50 | RADIOLOGY REPORT PS360 ---
KNEE-3 VIEWS-RT COMPARISON: Right knee 05/01/2012 HISTORY: Right knee pain after a fall TECHNIQUE: AP lateral and oblique views FINDINGS: There is mild joint space narrowing medially. The femoral condyles tibial plateau and head of the fibula appear intact. The patella is intact and I see no definite effusion. IMPRESSION: Minor degenerative change, right knee negative for fracture
--- NOTE | 2017-01-02 10:54 | RADIOLOGY REPORT PS360 ---
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 There is faint ossification in the medial and lateral meniscus. There are small periarticular ossifications adjacent to the joint capsule posteriorly in the popliteal fossa. There is narrowing of patellofemoral space however the patella is intact and I see no definite effusion. IMPRESSION: Prominent ossification of the medial collateral ligament, chondrocalcinosis of the medial lateral meniscus, no definite acute fracture seen
--- NOTE | 2017-01-02 11:39 | RADIOLOGY REPORT PS360 ---
CT CERVICAL SPINE W/O CONT COMPARISON: CT scan cervical spine 12/24/2016 HISTORY: Neck pain after a fall TECHNIQUE: Multiple axial scans of the cervical spine were obtained. Sagittal and coronal reformats were evaluated as well. FINDINGS: There is normal curvature and alignment. There is disc space narrowing with anterior and posterior osteophytic spurring at the C6-7 level area there are multilevel arthritic changes of the apophyseal joints. The prevertebral soft tissues are normal and the odontoid is intact but shows arthritic change with mild spurring of the tip of the odontoid. There is mild neural foraminal narrowing on the right side at the C3-4 level and on the left side at C4-5. IMPRESSION: Multilevel degenerative changes most prominent at the C6-7 level, no acute cervical spine pathology identified.
[2017-01-02 11:47] VITALS: BP 169/95
[2017-01-05] MEDS ORDERED: RISPERDAL0.5 MG PO (06:08)
[2017-01-05] MEDS ORDERED: SIMETHICONE PO (06:10)
[2017-01-05] MEDS ORDERED: ROBITUSSIN10 ML/UDC PO (06:11)
[2017-01-05] MEDS ORDERED: IMODIUM 2MG. CAP2 MG PO (06:13)
[2017-01-05] MEDS ORDERED: ALIGN4 MG PO (06:15)
--- NOTE | 2017-01-05 09:00 | RADIOLOGY REPORT PS360 ---
CT CHEST W/O CONTRAST COMPARISON: CT scan the chest 10/15/2016 HISTORY: Patient fell, complaining of chest pain TECHNIQUE: Multiple axial scans obtained from the thoracic inlet the hemidiaphragms and were performed without IV contrast. Sagittal and coronal reformats were evaluated as well. FINDINGS: This is somewhat poor inspiration. Again noted is elevation of the right hemidiaphragm with hepatic flexure of the colon between the right hemidiaphragm and the liver known as a hepatic interposition syndrome and this was noted previously. There is a noncalcified granuloma anterior segment right upper lobe. Mild chronic interstitial changes are seen in the right lower lobe posterior basilar segment. There is no pneumothorax and is no evidence of pulmonary contusion. There is no obvious rib fracture. Cardiac size is borderline and there is mild aortic tortuosity. There is multilevel degenerative changes of the thoracic spine. IMPRESSION: Stable chronic changes as described above, no acute chest pathology identified.
[2017-01-05] MEDS ORDERED: SEROQUEL400 MG PO (12:05)
[2017-01-08] MEDS ORDERED: CEFDINIR300 MG PO (10:04)
== END 2017-01-02 11:48 | disposition home or self-care (01) ==
LOC: ER 07:52
DX: S80.211A Abrasion, right knee, initial encounter (principal); S80.212A Abrasion, left knee, initial encounter; M54.2 Cervicalgia; R10.2 Pelvic and perineal pain; W06.XXXA Fall from bed, initial encounter; Z91.81 History of falling; Z79.82 Long term (current) use of aspirin; Z79.899 Other long term (current) drug therapy; Z79.51 Long term (current) use of inhaled steroids; I10 Essential (primary) hypertension; E78.5 Hyperlipidemia, unspecified

== ENCOUNTER 2017-04-03 16:51 | Emergency (ER) | payer MEDICARE, MEDICAID ==
[~2017-04-03] VITALS: Ht 188 cm; Wt 88.0 kg
[~2017-04-03 16:51] MED LIST changes: +ATORVASTATIN 4040 MG PO; +CEFDINIR300 MG PO; +LEVAQUIN500 MG PO; +PYRIDIUM200 M2 PO; +RISPERDAL0.5 MG PO; +ROBITUSSIN10 ML/UDC PO; +SEROQUEL400 MG PO; +SIMETHICONE PO
--- NOTE | 2017-04-03 16:58 | Emergency Room Report ---
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 Clinical Suspician of Infection? Mental Status: Sepsis Risk: Have you (or family members/close friends) recently traveled outside the [place]? If Yes, where/when: Have you had exposure to infectious disease within the past month? TB? Other? Specify: Source patient, RN notes reviewed Exam Limitations no limitations Comment Pt sent to the ED from [facility] history of a Watery diarrhea for the past 5 days. He has also had some abdominal distention and pain but no fever. He has a history of Ileus but he has not had any fever or vomiting but his abdomen does hurt more on the left side Cardiac Chest Pain Chest pain indicative of cardiac No ALLERGIES Coded Allergies: ketorolac (From TORADOL) (I-RASH 10/15/16) lithium (I-RASH 10/15/16) Home Medications Active Scripts Bifidobacterium Infantis (Align) 4 MG PO DAILY #30 CAP Prov: 06/30/16 Polyethylene Glycol 3350 (Miralax) 17 GM PO DAILYP PRN CONSTIPATION #30 Prov: 06/30/16 Reported Medications Atorvastatin Calcium (Atorvastatin 40MG) 40 MG PO QHS LISINOPRIL (Lisinopril) 5 MG PO DAILY Benztropine Mesylate 1 MG PO BID Quetiapine Fumarate (Seroquel 400MG) 400 MG PO QHS ATENOLOL (Atenolol 50MG) 50 MG PO DAILY Pregabalin (Lyrica 300MG) 300 MG PO BID CLOPIDOGREL BISULFATE (PLAVIX) 75 MG PO DAILY Acetaminophen (Acetaminophen Extra Strength) 500 MG PO Q6HP PRN PAIN Trazodone Hcl (Trazodone HCl) 100 MG PO QHS Guaifenesin (Robafen) 10 ML PO Q4HP PRN COUGH Doxazosin Mesylate (Doxazosin 4MG Tablet) 4 MG PO BID ASPIRIN (Aspirin) 81 MG PO DAILY Buspirone Hcl 30 MG PO BID Oxybutynin Chloride (Ditropan XL) 10 MG PO QHS Lorazepam (Ativan 1MG) 1 MG PO Q4HP PRN ANXIETY Fluticasone Propionate (Flonase 50 Mcg Nasal [place]) 2 SPRAY NS DAILY Oxcarbazepine 600 MG PO BID Finasteride (Proscar 5MG Tablet) 5 MG PO DAILY Albuterol-Ipratropium (Combivent Inhaler) 1 PUFFS IN QID Oyster Shell (Oscal 500MG Tablet) 500 MG PO BID VENLAFAXINE HCL (Venlafaxine HCl ER) 225 MG PO DAILY BUDESONIDE/FORMOTEROL FUMARATE (Symbicort 160-4.5 Mcg Inhaler) 2 PUFFS IH BID History Medical History General CAD? Yes Angina: No [place]: Yes Hypertension? Yes Hyperlipidemia? Yes CHF? No DVT? No PE? No COPD? Yes Asthma? No Anemia? No GERD? Yes Gastric ulcers? No GI Bleed? No Hernia? No Thyroid Problems? No Hypothyroidism? No CVA? No Seizures? No Diabetes? No Renal Insuffiency? No End Stage Renal Disease? No UTI? Yes Stones? No BPH? Yes GB Disease: No Nephritic Syndrome? No Asplenia? No Hepatitis? No Sickle Cell Disease? No Arthritis? Yes Migraines? No Cataracts? No Glaucoma? No MRSA? No HIV? No TB? No Anxiety? Yes Depression? Yes Cancer? No More? Yes Additional hx: SCHITZOPHRENIA, NEUROPATHIC PAIN, TOBACCO ABUSE, STAPH AUREUS, Immunization Hx DT/Tetanus Unknown Flu 2015-17FSN Pneumonia Received In Past Surgical Hx Previous Surgery?Y LT KNEE GALLBLADDER STENT BACK SURGERY Family History Family Hx Diabetes Yes CAD Yes Hypertension Yes Hyperlipidemia Yes Cancer Yes TB No Social History Smoking Hx Packs/day < 1 Pack Alcohol Alcohol: No Review of Systems All Other Systems Reviewed and Negative Constitutional see HPI Gastrointestinal see HPI Physical Exam Vital Signs Vital Signs Date Time Temp Pulse Resp B/P Pulse O2 O2 Flow FiO2 Ox Delivery Rate 04/03 2016 76 18 171/97 91 04/03 1850 73 18 171/111 92 04/03 1806 74 18 176/108 97 04/03 1652 98.9 74 18 175/109 95 General Appearance normal appearance, no apparent distress Respiratory Status No: respiratory distress. Cardiovascular normal exam, regular rate/rhythm Gastrointestinal abnormal bowel sounds, distended, no guarding, no rebound, tenderness Neurologic alert, medical coding auditor II-XII nml as tested, normal exam Medical Decision Making LABS/Meds/Orders Pt receiving controlled substance in ED? No Results/Orders Laboratory Tests 04/03/17 1805: Sodium 125 L, Potassium 4.2, Chloride 89 L, Carbon Dioxide 30, BUN 10, Creatinine 0.7 L, Estimated Creat Clear 136, Estimated GFR (MDRD) 114, Glucose 61 L, Calcium 9.5, Total Bilirubin 1.0, AST 26, ALT 27, Alkaline Phosphatase 129 H, Total Protein 8.0, Albumin 3.9, Globulin 4.1 H, Albumin/Globulin Ratio 1.0 L, WBC 7.9, RBC 5.26, Hgb 15.4, Hct 45.7, MCV 87.0, RDW 13.7, Plt Count 184 , MPV 7.3 L, Gran % 79.4, Gran # 6.3, Lymphocytes % 13.1, Monocytes % 6.1, Eosinophils % 0.8, Basophils % 0.6, Lymphocytes # 1.1, Monocytes # 0.5, Eosinophils # 0.1, Basophils # 0.0, PUBS MCHC 33.7, MCH 29.3 Current Medication Orders Sig/Martinez Start time Last Medication Dose Route Stop Time Status Admin Sodium Chloride 10 ML PRN PRN 04/03 1700 AC IV 04/04 165 Orders Procedure Date/time Status DIET-NOTHING BY MOUTH 04/03 D Active DIARRHEA PANEL, PCR 04/[address] ABD & PELVIS W/O CONTRAST 04/[address] ABD/PELVIS REQ 04/03 165 Complete IV SALINE LOCK 04/03 165 Active URINALYSIS/COMPLETE 04/03 165 Active CBC WITH AUTO DIFF 04/03 165 Complete CHEM 12 PROFILE 04/03 165 Complete XRAY/CT/US XRAY/CT/US CT abdomen, pelvis CT interpretation by reviewed by me, discussed w/radiologist Time results known: 2015 CT Results [place]imack Syndrome with markedly dilated Large bowel without mechanical obstruction...this is chronic Departure Departure Time of Disposition 2015 Disposition DC/XFER to an SNF Clinical Impression Primary Impression: Merrimack's syndrome Secondary Impressions: Hyponatremia Condition STABLE Referrals Radha MEDINA,Thaddeus Bass (Family): 4 Days-Call Office Patient Instructions DI for Hyponatremia, Hyponatremia-Adult Additional Instructions Maintain fluid restriction as before and continue regular meds. Discharge Counseling Counseled pt/family regarding diagnosis, test results, follow up needs ED Critical Care Critical Care No If Critical Care minutes are documented, the time involved in the performance of seperately reportable procedures was not counted toward critical care time documented. I directly delivered medical care to this critically ill and/or injured patient. Timely evaluation and treatment was necessary to address the significant organ system(s) dysfunction present in this patient. at 2020
--- OUTSIDE RECORDS SUMMARY | 2017-04-03 17:17 | External Medical Summary Rpt | Continuity of Care Document ---
Author Author Organization Address Unknown Phone Unavailable Care Team Providers Care Donor Services Technician Name Role Phone , Unavailable Unavailable EMS Current Medications Section EMS Allergies and Adverse Reactions EMS Past Medical History Medications Administered Section EMS Procedures Performed EMS Vital Signs EMS Patient Care Report Narrative EMS CALLED TO [facility][NOTE 3] FOR 61 YO MALE WITH C/O ABD PAIN AND DISTENSION. UPON ARRIVAL, PT SITTING IN W/C. PT HAS ABD EDEMA AND RIGIDITY. PT IS AAOX4. HE C/O ABDOMINOPELVIC PAIN R/T UTI THAT PT IS BEING TREATED FOR AT THIS TIME. PT IS SOA. PT TRANSFERRED TO COT. V/S TAKEN, SEE LIST. B/P IS ELEVATED. EKG SINUS RHYTHM. PT HAS EDEMA IN LOWER EXT. LUNG SOUNDS ARE DIMINISHED IN RIGHT UPPER AND LOWER AND LEFT LOWER, WHEEZING IN LEFT UPPER. IV ACCESS ATTEMPTED X 2 WITH NO SUCCESS. DUO NEB ADMINISTERED VIA MASK WITH IMPROVEMENT IN LUNG SOUND AND SOA. PT CONTINUED TO C/O PAIN IN HIS LOWER ABD/PELVIC AREA. UPON ARRIVAL TO ER, PTS CONDITION IMPROVED. CARE TRANSFERRED TO ER STAFF. END LLE
--- OUTSIDE RECORDS SUMMARY | 2017-04-03 17:17 | External Medical Summary Rpt | Continuity of Care Document ---
Author Author Organization Address Unknown Phone Unavailable Care Team Providers Care Silk Screen Printing Racker Name Role Phone , Unavailable Unavailable EMS Current Medications Section EMS Allergies and Adverse Reactions EMS Past Medical History Medications Administered Section EMS Procedures Performed EMS Vital Signs EMS Patient Care Report Narrative Ec 4 responded to [facility] 2nd floor in reference to the transfer of a 61 year old male pt who was being discharged from the hospital. Pt required transport to his residence at [facility]. Pt was brought into [facility] earlier this week for abdominal distention. Pt was admitted per doctor Radha for observation. Pt was diagnosed with constipation. Upon arrival pt was supine in the bed. Pt had urinated on himself and required a bed change. Srna was called into room to change and clean the pt. Nurse met us at the door and gave report of previous findings. Stated pt had a bowel movement and was able to go back to his residence. EMT Shiraz and RN ankit stood pt up and helped him to the stretcher. Pt was secured onto stretcher and placed in back of the ambulance. Transported without incident. Care was transferred to juanita crain
--- OUTSIDE RECORDS SUMMARY | 2017-04-03 17:17 | External Medical Summary Rpt | Continuity of Care Document ---
Author Author Organization Address Unknown Phone Unavailable Care Team Providers Care Plastic Installer Name Role Phone , Unavailable Unavailable EMS Current Medications Section EMS Allergies and Adverse Reactions EMS Past Medical History Medications Administered Section EMS Procedures Performed EMS Vital Signs EMS Patient Care Report Narrative EMS CALLED TO [facility] FOR 61 YO MALE WITH C/O ABD [...]
--- OUTSIDE RECORDS SUMMARY | 2017-04-03 17:17 | External Medical Summary Rpt | Continuity of Care Document ---
Author Author Organization Address Unknown Phone Unavailable Care Team Providers Care Car Supplier Name Role Phone , Unavailable Unavailable EMS Current Medications Section EMS Allergies and Adverse Reactions EMS Past Medical History Medications Administered Section EMS Procedures Performed EMS Vital Signs EMS Patient Care Report Narrative Ec 4 responded to [facility] 2nd floor in reference to the transfer of a 61 year old male pt who was being discharged from the hospital. Pt required transport to his residence at [facility]. Pt was brought into [facility] earlier this week for abdominal distention. [...]
--- OUTSIDE RECORDS SUMMARY | 2017-04-03 17:19 | External Medical Summary Rpt | CCD ---
Author Author , ALESSANDRO FRANCOIS Address Unknown Phone [email or web address] Care Team Providers Care Business Integration Manager Name Role Phone Ling Garcia MD, Unavailable Unavailable Ling Garcia MD Purpose Continuity of Care Document - 02-10-2013 through 2016 Problems Code Diagnosis DOS Provider Status 305.1 305.1 06-28-2013 Herbie TOBACCO USE [facility] 401.9 401.9 06-28-2013 Herbie HYPERTENSIO [facility] [phone] CHR 06-28-2013 Herbie AIRWAY [phone] 06-28-2013 Herbie CONTUSION [facility] FACE/SCALP/ Hospital NCK E849.7 E849.7 06-28-2013 Herbie ACCID IN [facility] INSTIT E885.9 E885.9 FALL 06-28-2013 Herbie FROM [facility] SLIPPING, Hospital TRIPPING, OR STUMBLING NEC D72.829 ELEVATED WHITE BLOOD CELL COUNT, UNSPECIFIED E87.1 HYPO-OSMOLA LITY AND HYPONATREMI A 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IA, UNSPECIFIED F29 Unspecified psychosis not due to a substance or known physiologic al condition I25.10 Atheroscler otic heart disease of [place] coronary artery without angina pectoris I25.83 Coronary atheroscler osis due to lipid rich plaque [id number] J18.9 PNEUMONIA, UNSPECIFIED ORGANISM J44.1 CHRONIC OBSTRUCTIVE PULMONARY DISEASE W (ACUTE) EXACERBATIO N K56.69 OTHER INTESTINAL OBSTRUCTION K56.7 ILEUS, UNSPECIFIED K63.89 OTHER SPECIFIED DISEASES OF INTESTINE L72.3 SEBACEOUS CYST M51.16 INTERVERTEB RAL DISC DISORDERS W RADICULOPAT HY, LUMBAR REGION N39.0 URINARY TRACT INFECTION, SITE NOT SPECIFIED R07.9 CHEST PAIN, UNSPECIFIED R10.9 UNSPECIFIED ABDOMINAL PAIN R19.7 DIARRHEA, UNSPECIFIED R41.82 ALTERED MENTAL STATUS, UNSPECIFIED R42 DIZZINESS AND GIDDINESS S00.91XA ABRASION OF UNSPECIFIED PART OF HEAD, INITIAL ENCOUNTER S00.93XA CONTUSION OF UNSPECIFIED PART OF HEAD, INITIAL ENCOUNTER S16.1XXA STRAIN OF MUSCLE, FASCIA AND TENDON AT NECK LEVEL, INIT S30.0XXA CONTUSION OF LOWER BACK AND PELVIS, INITIAL ENCOUNTER S80.211A ABRASION, RIGHT KNEE, INITIAL ENCOUNTER T14.8 OTHER INJURY OF UNSPECIFIED BODY REGION T81.4XXA INFECTION FOLLOWING A PROCEDURE, INITIAL ENCOUNTER W06.XXXA FALL FROM BED, INITIAL ENCOUNTER W19.XXXA UNSPECIFIED FALL, INITIAL ENCOUNTER Z01.810 Encounter for preprocedur al cardiovascu lar examination Z01.818 ENCOUNTER FOR OTHER PREPROCEDUR AL EXAMINATION Z79.899 OTHER SENIOR INVESTIGATOR (CURRENT) DRUG THERAPY Z95.5 Presence of coronary angioplasty implant and graft Allergies, Adverse Reactions, Alerts Type Allergy to substance Drug Allergy Adverse Reaction to Substance Substance Reaction Severity STAFLEX ITCHING Unknown [place] I-RASH Mild Ketorolac I-ITCHING Mild Phenyltoloxamine I-ITCHING [...] ti ML ve Sy ri ng e AP 00 09 0 No AP 40 -0 -H 60 6- Lo YD 36 20 ng RO 66 13 er CO 2 DO Ac NE ti ve 32 5M G- 7. 5M G Vital Signs 06-28-2013 23:40 Name Value Interpretat [...] Order Detail nces retati t Range on Drugs identified in Urine by Screen method (01-05-2017 05:47) Ampheta NEGATIV <1000 complet mine 017 E ed [Presen 05:47 ce] in Urine by Screen method 11-Hydr NEGATIV <50 complet oxy 017 E ed delta-9 05:47 tetrahy drocann abinol [Presen ce] in Unspeci fied specime n Urinalysis dipstick W Reflex Microscopic panel in Urine (01-05-2017 05:47) Bacteri 2+ O complet a 017 ed [Presen 05:47 ce] in Urine sedimen t by Light microsc opy Erythro OCC 0 complet cytes 017 ed [Presen 05:47 ce] in Urine sedimen t by Light microsc opy Leukocy 20-50 O complet jany 017 wbc/hpf ed [#/volu 05:47 me] in Urine Urinalysis dipstick W Reflex Microscopic panel in Urine (01-05-2017 05:47) Appeara CLOUDY CLEAR complet nce of 017 ed Urine 05:47 Bilirub NEGATIV NEG complet in 017 E ed [Presen 05:47 ce] in Urine by Test strip Erythro TRACE-I NEG complet cytes 017 NTACT ed [Presen 05:47 ce] in Urine Color YELLOW YELLOW complet of 017 ed Urine 05:47 Ketones NEGATIV NEG complet 017 E ed [Presen 05:47 ce] in Urine by Automat ed test strip Mucus 3+ NEG Abnorma complet [Presen 017 l ed ce] in 05:47 Urine sedimen t by Light microsc opy Nitrite NEGATIV NEG complet 017 E ed [Presen 05:47 ce] in Urine by Test strip Urobili 1.0 NEG complet nogen 017 ed [Presen 05:47 ce] in Urine by Test strip Differential panel, method unspecified - (12-10-2016 06:00) [...] 013 gm/dL ed Ser-mCn 10:45 c Albumin -06-2 1.4 UNK 1.1-1.8 complet /Glob 013 ed SerPl-m 10:45 Rto Bilirub 02-10-2 0.5 0.2-1.0 complet 013 mg/dL ed SerPl-m 10:45 Cnc AST 02-10-2 19 U/L 15-37 complet SerPl-c 013 ed Cnc 10:45 ALT 06-2 30 U/L 30-65 complet SerPl-c 013 ed Cnc 10:45 ALP 02-10-2 136 U/L 50-136 complet SerPl-c 013 ed Cnc 10:45 CBC with AUTO DIFF (02-10-2013 10:45) WBC # -06-2 6.7 4.8-10. complet Bld 013 K/MM3 8 ed Auto 10:45 RBC # 06-2 5.86 4.6-6.2 complet Bld 013 M/mm3 ed Auto 10:45 Hgb 06-2 18.3 14.1-18 High complet Bld-mCn 013 g/dL .0 alert ed c 10:45 Hct Fr 02-10-2 53.7 % 42.0-52 complet Bld 013 .0 ed 10:45 MCV RBC 06-2 91.7 fl 82.2-97 complet 013 .8 ed 10:45 MCH RBC 06-2 31.2 pg 27-31.2 complet Qn 013 ed Auto 10:45 MEAN 06-2 34.0 31.8-35 complet CORPUSC 013 g/dl .4 ed ULAR 10:45 HGB CONC RDW RBC 06-2 15.7 % 11.5-17 complet Auto 013 .5 ed 10:45 Platele -06-2 163 142-424 complet t Bld 013 K/mm3 ed Ql 10:45 Manual MEAN -06-2 8.5 fl 7.4-10. complet PLATELE 013 4 ed T 10:45 VOLUME Granulo 06-2 75.2 % 37.0-80 complet cytes 013 .0 ed Fr Bld 10:45 Auto LYMPH % -06-2 15.5 % 10-50 complet 013 ed 10:45 Monocyt -06-2 6.1 % 1.7-9.3 complet es Fr 013 ed Bld 10:45 Auto Eosinop 09-06-2 2.1 % 0.1-12. complet hil Fr 013 0 ed Bld 10:45 Auto Basophi 09-06-2 0.9 % 0.1-2.0 complet ls Fr 013 ed Bld 10:45 Auto Granulo 09-06-2 5.1 1.3-8.0 complet cytes # 013 K/mm3 ed Bld 10:45 Auto Lymphoc -06-2 1.0 0.7-4.5 complet ytes Fr 013 K/mm3 ed Bld 10:45 Auto Monocyt 09-06-2 0.4 0.1-1.0 complet es # 013 K/mm3 ed Bld 10:45 Auto Eosinop 09-06-2 0.1 0.0-0.4 complet hil # 013 K/mm3 ed Bld 10:45 Auto Basophi 09-06-2 0.1 0-0.2 complet ls # 013 K/MM3 ed Bld 10:45 Auto Encounters Encounter Start End Date Code Location Performer Type Date Emergency MANAV Garcia MD (ER) 4 22:23 4 23:42 [facility] Emergency MANAV BRIONES (ER) 3 10:44 3 13:55 [facility] ORIANA
--- OUTSIDE RECORDS SUMMARY | 2017-04-03 17:19 | External Medical Summary Rpt | CCD ---
Author Author , ALESSANDRO FRANCOIS Address Unknown Phone [email or web address] Care Team Providers Care Inspector Fuel Hose Name Role Phone Ling Garcia MD, Unavailable Unavailable Ling Garcia MD Purpose Continuity of Care Document - 02-10-2013 through 2016 Problems Code Diagnosis DOS Provider Status 305.1 305.1 06-28-2013 Herbie TOBACCO USE [facility] [place] 401.9 401.9 06-28-2013 Herbie HYPERTENSIO [facility] Hospital 496 496 CHR 06-28-2013 Herbie [facility]WAY [phone] 06-28-2013 Herbie CONTUSION [facility] FACE/SCALP/ Hospital NCK E849.7 E849.7 06-28-2013 Herbie ACCID IN 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 substance or known physiologic al condition I25.10 Atheroscler otic heart disease of [place] coronary artery without angina pectoris I25.83 Coronary atheroscler osis due to lipid rich plaque [id number] J18.9 PNEUMONIA, UNSPECIFIED ORGANISM J44.1 CHRONIC OBSTRUCTIVE [...] FOR OTHER PREPROCEDUR AL EXAMINATION Z79.899 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
--- OUTSIDE RECORDS SUMMARY | 2017-04-03 17:19 | External Medical Summary Rpt | CCD ---
Demographics Preferred Language Chinese Marital Status Unknown Spiritism Affiliation Unknown Race Unknown Ethnic Group Unknown Author Author , ASHLYN FRANCOIS Address Unknown Phone Immunization No patient found.
--- OUTSIDE RECORDS SUMMARY | 2017-04-03 17:19 | External Medical Summary Rpt | CCD ---
Demographics Preferred Language Bangladeshi Marital Status Unknown Worship Affiliation Unknown Race Unknown Ethnic Group Unknown Author Author , ASHLYN FRANCOIS Address Unknown Phone Immunization No patient found.
--- OUTSIDE RECORDS SUMMARY | 2017-04-03 17:20 | External Medical Summary Rpt ---
Author Author [employer], [employer] Organization [employer] Address Unknown Phone Unavailable Results Auto Diff Observa Value Referen Units Interpr Notes Date tion ce etation Range Neutrop 78.7 No % No No Sep 6 hils informa informa informa 2017 [#/volu tion in tion in tion in 2:34 PM me] in source source source Blood data data data by Automat ed count Lymphoc 12.4 No % No No Sep 6 ytes informa informa informa 2017 [#/volu tion in tion in tion in 2:34 PM me] in source source source Blood data data data by Automat ed count Monocyt 7.8 No % No No Sep 6 es informa informa informa 2017 [#/volu tion in tion in tion in 2:34 PM me] in source source source Blood data data data by Automat ed count Eos 0.8 No % No No Sep 6 Percent informa informa informa 2017 tion in tion in tion in 2:34 PM source source source data data data Baso 0.3 No % No No Sep 6 Percent informa informa informa 2017 tion in tion in tion in 2:34 PM source source source data data data Neut# 5.9 1.8 - x10(3)/ No No Sep 6 7.7 mcL informa informa 2017 tion in tion in 2:34 PM source source data data Lymph# 0.9 0.6 - x10(3)/ No No Sep 6 4.8 mcL informa informa 2017 tion in tion in 2:34 PM source source data data [place]# 0.6 0.0 - x10(3)/ No No Sep 6 1.3 mcL informa informa 2017 tion in tion in 2:34 PM source source data data Eos# 0.1 0.0 - x10(3)/ No No Sep 6 0.5 mcL informa informa 2017 tion in tion in 2:34 PM source source data data Baso# 0.0 0.0 - x10(3)/ No No Sep 6 0.2 [facility] informa informa 2017 tion in tion in 2:34 PM source source data data CBC Observa Value Referen Units Interpr Notes Date tion ce etation Range LEUKOCY 7.5 4.0 - x10(3)/ No No Sep 6 DOMINIQUE 11.0 [facility] informa informa 2017 tion in tion in 2:34 PM source source data data Erythro 4.33 4.30 - x10(6)/ No No Sep 6 cytes 5.81 [facility] informa inform2016 [#/volu tion in tion in 2:34 PM me] in source source Blood data data by Automat ed count Hemoglo 13.5 13.5 - gm/dL No No Sep 6 bin 17.1 informa inform2016 [Mass/v tion in tion in 2:34 PM olume] source source in data data Blood Hematoc 39.8 38.9 - % No No Sep 6 rit 51.6 informa inform2016 [Volume tion in tion in 2:34 PM source source Fractio data data n] of Blood by Automat ed count Erythro 91.9 82.5 - fL No No Sep 6 cyte 99.8 informa inform 2017 mean tion in tion in 2:34 PM corpusc source source ular data data volume [Entiti c volume] by Automat ed count Erythro 31.1 27.0 - pg No No Sep 6 cyte 34.3 informa informa 2017 mean tion in tion in 2:34 PM corpusc source source ular data data hemoglo bin [Entiti c mass] by Automat ed count Erythro 33.8 32.1 - gm/dL No No Sep 6 cyte 35.3 informa informa 2017 mean tion in tion in 2:34 PM corpusc source source ular data data hemoglo bin concent ration [Mass/v olume] by Automat ed count Erythro 16.0 11.5 - % High No Sep 6 cyte 15.0 inform2016 distrib tion in 2:34 PM ution source width data [Ratio] by Automat ed count Platele 196 144 - x10(3)/ No No Sep 6 ts 423 mcL informa informa 2016 [#/volu tion in tion in 2:34 PM me] in source source Blood data data by Automat ed count MPV 7.4 6.8 - fL No No Feb 10 10.8 informa informa 2016 tion in tion in 2:34 PM source source data data Lactate [Moles/volume] in Blood Observa Value Referen Units Interpr Notes Date tion ce etation Range Lactate 0.4 - 2.0 mmol/L Normal No Feb 02 [Moles/vo informati 2016 1:13 lume] in on in PM Blood source data Amylase [Enzymatic activity/volume] in Serum or Plasma Observa Value Referen Units Interpr Notes Date ti ce etation Range Amylase 25 - 115 U/L Normal No Feb 02 [Enzymati informati 2017 1:13 c on in PM activity/ source volume] data in Serum or Plasma Comprehensive metabolic 2000 panel in Serum or Plasma Observa Value Referen Units Interpr Notes Date ti ce etation Range Albumin/G 1.1 - 1.8 No Low No Feb 02 lobulin informati informati 2016 1:13 [Mass on in on in PM ratio] in source source Serum or data data Plasma Albumin 3.4 - 5.0 gm/dL Normal No Feb 02 [Mass/vol informati 2016 1:13 ume] in on in PM Serum or source Plasma data Alkaline 46 - 116 U/L Normal No Feb 02 phosphata informati 2016 1:13 se on in PM [Enzymati source c data activity/ volume] in Serum or Plasma Bilirubin 0.2 - 1.0 mg/dL Normal No Feb 02 .total informati 2017 1:13 [Mass/vol on in PM ume] in source Serum or data Plasma Urea 7 - 18 mg/dL High No Feb 02 nitrogen informati 2017 1:13 [Mass/vol on in PM ume] in source Serum or data Plasma Calcium 8.5 - mg/dL Normal No Feb 02 [Mass/vol 10.1 informati 2017 1:13 ume] in on in PM Serum or source Plasma data Chloride 98 - 107 mmoL/L Low No Feb 02 [Moles/vo informati 2017 1:13 lume] in on in PM Serum or source Plasma data Carbon 21.0 - mmoL/L Normal No Feb 02 dioxide, 32.0 informati 2017 1:13 total on in PM [Moles/vo source lume] in data Serum or Plasma Creatinin 0.70 - mg/dL Normal No Feb 02 e 1.30 informati 2016 1:13 [Mass/vol on in PM ume] in source Serum or data Plasma Creatinin 50 - 200 ML/MIN Normal No Feb 02 e renal informati 2016 1:13 clearance on in PM source predicted data by Cockcroft -Gault formula Estimated >60 ML/MIN No REFERENCE Feb 02 informati RANGE: 2017 1:13 glomerula on in >60 PM r source ML/MIN/1. filtratio data 73 SQUARE n rate METERSIf (GF this patient is -A merican, then multiply theresult by 1.210. Globulin 1.3 - 3.2 gm/dL High No Feb 02 [Mass/vol informati 2016 1:13 ume] in on in PM Serum source data Glucose 74 - 106 mg/dL Normal No Feb 02 [Mass/vol informati 2016 1:13 ume] in on in PM Serum or source Plasma data Potassium 3.5 - 5.1 mmoL/L Normal No Feb 02 inform2016 1:13 [Moles/vo on in PM lume] in source Serum or data Plasma Sodium 136 - 145 mmoL/L Low No Feb 02 [Moles/vo informati 2016 1:13 lume] in on in PM Serum or source Plasma data Aspartate 15 - 37 U/L Normal No Feb 02 informati 2016 1:13 aminotran on in PM sferase source [Enzymati data c activity/ volume] in Serum or Plasma Alanine 12 - 78 U/L Normal No Feb 02 aminotran informati 2016 1:13 sferase on in PM [Enzymati source c data activity/ volume] in Serum or Plasma Protein 6.4 - 8.2 gm/dL Normal No Feb 02 [Mass/vol informati 2016 1:13 ume] in on in PM Serum or source Plasma data Lipase [Enzymatic activity/volume] in Serum or Plasma Observa Value Referen Units Interpr Notes Date tion ce etation Range Lipase 73 - 393 U/L Normal No Feb 02 [Enzymati informati 2016 1:13 c on in PM activity/ source volume] data in Serum or Plasma CBC W Auto Differential panel in Blood Observa Value Referen Units Interpr Notes Date tion ce etation Range Basophils 0 - 0.2 K/MM3 Normal No Feb 02 inform2016 1:13 [#/volume on in PM ] in source Blood by data Automated count Basophils 0.1 - 2.0 % Normal No Feb 02 /100 informati 2016 1:13 leukocyte on in PM s in source Blood by data Automated count Eosinophi 0.0 - 0.4 K/mm3 Normal No Feb 02 ls ati 2016 1:13 [#/volume on in PM ] in source Blood by data Automated count Eosinophi 0.1 - % Normal No Feb 02 ls/100 12.0 informati 2016 1:13 leukocyte on in PM s in source Blood by data Automated count Granulocy 1.3 - 8.0 K/mm3 High No Feb 02 dominique informati 2016 1:13 [#/volume on in PM ] in source Blood by data Automated count Granulocy 37.0 - % High No Feb 02 dominique/100 80.0 informati 2016 1:13 leukocyte on in PM s in source Blood by data Automated count Hematocri 42.0 - % Normal No Feb 02 t [Volume 52.0 ati 2016 1:13 on in PM Fraction] source of Blood data Hemoglobi 14.1 - g/dL Normal No Feb 02 n 18.0 informati 2016 1:13 [Mass/vol on in PM ume] in source Blood data Lymphocyt 0.7 - 4.5 K/mm3 Normal No Feb 02 es 2016 1:13 [#/volume on in PM ] in source Unspecifi data ed specimen by Automated count Lymphocyt 10 - 50 % Low No Feb 02 es 2016 1:13 [#/volume on in PM ] in source Unspecifi data ed specimen by Automated count Erythrocy 27 - 31.2 pg High No Feb 02 te mean informati 2016 1:13 corpuscul on in PM ar source hemoglobi data n [Entitic mass] Erythrocy 31.8 - g/dl Normal No Feb 02 te mean 35.4 informati 2016 1:13 corpuscul on in PM ar source hemoglobi data n concentra tion [Mass/vol ume] by Automated count Erythrocy 82.2 - fl Normal No Feb 02 te mean 97.8 informati 2016 1:13 corpuscul on in PM ar volume source [Entitic data volume] by Automated count Monocytes 0.1 - 1.0 K/mm3 Normal No Feb 02 informati 2016 1:13 [#/volume on in PM ] in source Blood by data Automated count Monocytes 1.7 - 9.3 % Normal No Feb 02 /100 informati 2016 1:13 leukocyte on in PM s in source Blood by data Automated count Platelet 7.4 - fl Normal No Feb 02 mean 10.4 informati 2016 1:13 volume on in PM [Entitic source volume] data in Blood by Automated count Platelets 142 - 424 K/mm3 Normal No Feb 02 informati 2016 1:13 [#/volume on in PM ] in source Blood data Erythrocy 4.6 - 6.2 M/mm3 Low No Feb 02 domniique informati 2016 1:13 [#/volume on in PM ] in source Amniotic data fluid Erythrocy 11.5 - % Normal Feb 02 te 17.5 informati 2016 1:13 distribut on in PM ion width source [Entitic data volume] by Automated count Leukocyte 4.8 - K/MM3 Normal No Feb 02 s 10.8 informati 2016 1:13 [#/volume on in PM ] in source Blood data Basic metabolic panel in Blood Observa Value Referen Units Interpr Notes Date tion ce etation Range Urea 7 - 18 mg/dL Normal No Jan 06 nitrogen informati 2017 6:05 [Mass/vol on in AM ume] in source Serum or data Plasma Calcium 8.5 - mg/dL Normal No Jan 06 [Mass/vol 10.1 informati 2017 6:05 ume] in on in AM Serum or source Plasma data Chloride 98 - 107 mmoL/L Low No Jan 06 [Moles/vo informati 2017 6:05 lume] in on in AM Serum or source Plasma data Carbon 21.0 - mmoL/L Normal No Jan 06 dioxide, 32.0 informati 2017 6:05 total on in AM [Moles/vo source lume] in data Serum or Plasma Creatinin 0.70 - mg/dL Low No Jan 06 e 1.30 informati 2017 6:05 [Mass/vol on in AM ume] in source Serum or data Plasma Creatinin 50 - 200 ML/MIN Normal No Jan 06 e renal informati 2017 6:05 clearance on in AM source predicted data by Cockcroft -Gault formula Estimated >60 ML/MIN No REFERENCE Jan 06 informati RANGE: 2017 6:05 glomerula on in >60 AM r source ML/MIN/1. filtratio data 73 SQUARE n rate METERSIf (GF this patient is -A merican, then multiply theresult by 1.210. Glucose 74 - 106 mg/dL Normal No Jan 06 [Mass/vol informati 2016 6:05 ume] in on in AM Serum or source Plasma data Potassium 3.5 - 5.1 mmoL/L Normal No Jan 2 informati 2016 6:05 [Moles/vo on in AM lume] in source Serum or data Plasma Sodium 136 - 145 mmoL/L Low No Jan 2 [Moles/vo informati 2017 6:05 lume] in on in AM Serum or source Plasma data Basic metabolic panel in Blood Observa Value Referen Units Interpr Notes Date tion ce etation Range Urea 7 - 18 mg/dL No No Jan 05 nitrogen informati informati 2016 [Mass/vol on in on in 12:00 PM ume] in source source Serum or data data Plasma Calcium 8.5 - mg/dL Normal No Jan 05 [Mass/vol 10.1 informati 2016 ume] in on in 12:00 PM Serum or source Plasma data Chloride 98 - 107 mmoL/L Low No Jan 05 [Moles/vo informati 2017 lume] in on in 12:00 PM Serum or source Plasma data Carbon 21.0 - mmoL/L Normal No Jan 05 dioxide, 32.0 informati 2016 total on in 12:00 PM [Moles/vo source lume] in data Serum or Plasma Creatinin 0.70 - mg/dL Low No Jan 05 e 1.30 informati 2016 [Mass/vol on in 12:00 PM ume] in source Serum or data Plasma Creatinin 50 - 200 ML/MIN Normal No Jan 05 e renal informati 2017 clearance on in 12:00 PM source predicted data by Cockcroft -Gault formula Estimated >60 ML/MIN No REFERENCE Jan 05 informati RANGE: 2017 glomerula on in >60 12:00 PM r source ML/MIN/1. filtratio data 73 SQUARE n rate METERSIf (GF this patient is -A merican, then multiply theresult by 1.210. Glucose 74 - 106 mg/dL Normal No Jan 05 [Mass/vol informati 2016 ume] in on in 12:00 PM Serum or source Plasma data Potassium 3.5 - 5.1 mmoL/L Normal No Jan 05 informati 2016 [Moles/vo on in 12:00 PM lume] in source Serum or data Plasma Sodium 136 - 145 mmoL/L Low No Jan 05 [Moles/vo informati 2017 lume] in on in 12:00 PM Serum or source Plasma data Drugs identified in Urine by Screen method Observa Value Referen Units Interpr Notes Date tion ce etation Range Positive urine drug screen samples are stored for 7 days. Contact the Lab if confirmation of positives is needed. Ampheta NEGATIV <1000 ng/mL No No Jan 05 mine E informa informa 2017 [Presen tion in tion in 5:47 AM ce] in source source Urine data data by Screen method Barbitura <200 ng/mL No No Jan 05 dominique informati informati 2017 5:47 [Mass/vol on in on in AM ume] in source source Urine by data data Screen method Benzodiaz 200 ng/mL ng/mL No No Jan 05 epines informati informati 2017 5:47 [Mass/vol on in on in AM ume] in source source Serum or data data Plasma by Screen method Cocaine <300 ng/g No No Jan 05 [Mass/vol informati informati 2017 5:47 ume] in on in on in AM Unspecifi source source ed data data specimen Methadone <300 ng/mL No No Jan 05 informati informati 2017 5:47 [Mass/vol on in on in AM ume] in source source Unspecifi data data ed specimen Opiates <300 ng/mL No No Jan 05 [Mass/vol informati informati 2017 5:47 ume] in on in on in AM Unspecifi source source ed data data specimen Phencycli <25 ng/mL No No Jan 05 dine informati informati 2017 5:47 [Mass/vol on in on in AM ume] in source source Unspecifi data data ed specimen 11-Hydr NEGATIV <50 ng/mL No No Jan 05 oxy E informa informa 2017 delta-9 tion in tion in 5:47 AM source source tetrahy data data drocann abinol [Presen ce] in Unspeci fied specime n Urinalysis dipstick W Reflex Microscopic panel in Urine Observa Value Referen Units Interpr Notes Date tion ce etation Range Appeara CLOUDY CLEAR No No No Jan 05 nce of informa informa informa 2016 Urine tion in tion in tion in 5:47 AM source source source data data data Bacteri 2+ O No No No Jan 05 a informa informa informa 2016 [Presen tion in tion in tion in 5:47 AM ce] in source source source Urine data data data sedimen t by Light microsc opy Bilirub NEGATIV NEG No No No Jan 05 in E informa informa informa 2016 [Presen tion in tion in tion in 5:47 AM ce] in source source source Urine data data data by Test strip Erythro TRACE-I NEG No No No Jan 05 cytes NTACT informa informa informa 2016 [Presen tion in tion in tion in 5:47 AM ce] in source source source Urine data data data Color YELLOW YELLOW No No No Jan 05 of informa informa informa 2016 Urine tion in tion in tion in 5:47 AM source source source data data data Glucose NEG No No No Jan 05 [Mass/vol informati informati informati 2016 5:47 ume] in on in on in on in AM Urine by source source source Test data data data strip Ketones NEGATIV NEG mg/dL No No Jan 05 E informa informa 2016 [Presen tion in tion in 5:47 AM ce] in source source Urine data data by Automat ed test strip Mucus 3+ NEG No Abnorma No Jan 05 [Presen informa l inform2016 ce] in tion in tion in 5:47 AM Urine source source sedimen data data t by Light microsc opy Nitrite NEGATIV NEG No No No Jan 05 E informa informa informa 2016 [Presen tion in tion in tion in 5:47 AM ce] in source source source Urine data data data by Test strip pH of 5.0 - 8.5 No Normal No Jan 05 Urine informati informati 2017 5:47 on in on in AM source source data data Protein NEG mg/dL High No Jan 05 [Mass/vol informati 2017 5:47 ume] in on in AM Urine by source Automated data test strip Erythro OCC 0 rbc/hpf No No Jan 05 cytes informa informa 2017 [Presen tion in tion in 5:47 AM ce] in source source Urine data data sedimen t by Light microsc opy Specific 1.005 - No Normal No Jan 05 gravity 1.030 informati informati 2016 5:47 of Urine on in on in AM source source data data Urobili 1.0 NEG E.U./dL No No Jan 05 nogen informa informa 2016 [Presen tion in tion in 5:47 AM ce] in source source Urine data data by Test strip Leukocy [20 O wbc/hpf No No Jan 05 dominique wbc/hpf informa informa 2016 [#/volu ; 50 tion in tion in 5:47 AM me] in wbc/hpf source source Urine ] data data Urinalysis dipstick W Reflex Microscopic panel in Urine Observa Value Referen Units Interpr Notes Date tion ce etation Range Appeara CLOUDY CLEAR No No No Jan 05 nce of informa informa informa 2016 Urine tion in tion in tion in 5:47 AM source source source data data data Bilirub NEGATIV NEG No No No Jan 05 in E informa informa informa 2016 [Presen tion in tion in tion in 5:47 AM ce] in source source source Urine data data data by Test strip Erythro TRACE-I NEG No No No Jan 05 cytes NTACT informa informa informa 2016 [Presen tion in tion in tion in 5:47 AM ce] in source source source Urine data data data Color YELLOW YELLOW No No No Jan 05 of informa informa informa 2016 Urine tion in tion in tion in 5:47 AM source source source data data data Glucose NEG No No No Jan 05 [Mass/vol informati informati informati 2017 5:47 ume] in on in on in on in AM Urine by source source source Test data data data strip Ketones NEGATIV NEG mg/dL No No Jan 05 E informa informa 2016 [Presen tion in tion in 5:47 AM ce] in source source Urine data data by Automat ed test strip Mucus 3+ NEG No Abnorma No Jan 05 [Presen informa l inform2016 ce] in tion in tion in 5:47 AM Urine source source sedimen data data t by Light microsc opy Nitrite NEGATIV NEG No No No Jan 05 E informa informa informa 2017 [Presen tion in tion in tion in 5:47 AM ce] in source source source Urine data data data by Test strip pH of 5.0 - 8.5 No Normal No Jan 05 Urine informati informati 2017 5:47 on in on in AM source source data data Protein NEG mg/dL High No Jan 05 [Mass/vol 2016 5:47 ume] in on in AM Urine by source Automated data test strip Specific 1.005 - No Normal No Jan 05 gravity 1.030 informati informati 2016 5:47 of Urine on in on in AM source source data data Urobili 1.0 NEG E.U./dL No No Jan 05 nogen informa informa 2016 [Presen tion in tion in 5:47 AM ce] in source source Urine data data by Test strip Free T4 & TSH panel in Serum or Plasma Observa Value Referen Units Interpr Notes Date ti ce etation Range Thyroxine 5.93 - ug/dl Low No Jan 05 (T4) 13.13 ati 2016 5:25 free on in AM index in source Serum or data Plasma Triiodoth 31 - 39 % Normal No Jan 05 yronine ati 2016 5:25 (T3) on in AM resin source uptake in data Serum or Plasma Thyroxine 4.7 - ug/dl Normal No Jan 05 (T4) 13.3 ati 2016 5:25 [Mass/vol on in AM ume] in source Serum or data Plasma Thyrotrop 0.358 - uIU/ml No No Jan 05 in 3.740 informati informati 2016 5:25 [Units/vo on in on in AM lume] in source source Serum or data data Plasma CBC W Auto Differential panel in Blood Observa Value Referen Units Interpr Notes Date tion ce etation Range Basophils 0 - 0.2 K/MM3 Normal No Jan 05 informati 2016 5:25 [#/volume on in AM ] in source Blood by data Automated count Basophils 0.1 - 2.0 % Normal No Jan 05 /100 informati 2017 5:25 leukocyte on in AM s in source Blood by data Automated count Eosinophi 0.0 - 0.4 K/mm3 Normal No Jan 05 ls informati 2016 5:25 [#/volume on in AM ] in source Blood by data Automated count Eosinophi 0.1 - % Normal No Jan 05 ls/100 12.0 informati 2016 5:25 leukocyte on in AM s in source Blood by data Automated count Granulocy 1.3 - 8.0 K/mm3 Normal No Jan 05 dominique informati 2016 5:25 [#/volume on in AM ] in source Blood by data Automated count Granulocy 37.0 - % High No Jan 05 dominique/100 80.0 informati 2016 5:25 leukocyte on in AM s in source Blood by data Automated count Hematocri 42.0 - % Low No Jan 05 t [Volume 52.0 informati 2016 5:25 on in AM Fraction] source of Blood data Hemoglobi 14.1 - g/dL Low No Jan 05 n 18.0 informati 2016 5:25 [Mass/vol on in AM ume] in source Blood data Lymphocyt 0.7 - 4.5 K/mm3 Normal No Jan 05 es inform2016 5:25 [#/volume on in AM ] in source Unspecifi data ed specimen by Automated count Lymphocyt 10 - 50 % Normal No Jan 05 es 2016 5:25 [#/volume on in AM ] in source Unspecifi data ed specimen by Automated count Erythrocy 27 - 31.2 pg Normal No Jan 05 te mean informati 2016 5:25 corpuscul on in AM ar source hemoglobi data n [Entitic mass] Erythrocy 31.8 - g/dl Normal No Jan 05 te mean 35.4 informati 2016 5:25 corpuscul on in AM ar source hemoglobi data n concentra tion [Mass/vol ume] by Automated count Erythrocy 82.2 - fl Normal No Jan 05 te mean 97.8 informati 2016 5:25 corpuscul on in AM ar volume source [Entitic data volume] by Automated count Monocytes 0.1 - 1.0 K/mm3 Normal No Jan 05 informati 2016 5:25 [#/volume on in AM ] in source Blood by data Automated count Monocytes 1.7 - 9.3 % Normal No Jan 05 / informati 2016 5:25 leukocyte on in AM s in source Blood by data Automated count Platelet 7.4 - fl Low No Jan 05 mean 10.4 informati 2016 5:25 volume on in AM [Entitic source volume] data in Blood by Automated count Platelets 142 - 424 K/mm3 Normal No Jan 05 informati 2016 5:25 [#/volume on in AM ] in source Blood data Erythrocy 4.6 - 6.2 M/mm3 Low No Jan 05 dominique informati 2016 5:25 [#/volume on in AM ] in source Amniotic data fluid Erythrocy 11.5 - % Normal No Jan 05 te 17.5 informati 2017 5:25 distribut on in AM ion width source [Entitic data volume] by Automated count Leukocyte 4.8 - K/MM3 Normal No Jan 05 s 10.8 informati 2016 5:25 [#/volume on in AM ] in source Blood data CBC W Auto Differential panel in Blood Observa Value Referen Units Interpr Notes Date tion ce etation Range Basophils 0 - 0.2 K/MM3 Normal No Dec 10 informati 2016 6:00 [#/volume on in AM ] in source Blood by data Automated count Basophils 0.1 - 2.0 % Normal No Dec 10 informati 2017 6:00 leukocyte on in AM s in source Blood by data Automated count Eosinophi 0.0 - 0.4 K/mm3 Normal No Dec 10 ls informati 2016 6:00 [#/volume on in AM ] in source Blood by data Automated count Eosinophi 0.1 - % Normal No Dec 10 ls/100 12.0 informati 2017 6:00 leukocyte on in AM s in source Blood by data Automated count Granulocy 1.3 - 8.0 K/mm3 High No Dec 10 dominique informati 2017 6:00 [#/volume on in AM ] in source Blood by data Automated count Granulocy 37.0 - % High No Dec 10 dominique/100 80.0 informati 2016 6:00 leukocyte on in AM s in source Blood by data Automated count Hematocri 42.0 - % Normal No Dec 10 t [Volume 52.0 informati 2017 6:00 on in AM Fraction] source of [...] pg Normal No Dec 10 te mean inform2016 6:00 corpuscul on in AM ar source [...] - 1.0 K/mm3 Normal No Dec 10 informati 2016 [...] 142 - 424 K/mm3 Normal No Dec 10ati 2016 6:00 [#/volume on in AM ] in source Blood data Erythrocy 4.6 - 6.2 M/mm3 Normal No Dec 10 dominique informati 2017 6:00 [#/volume on in AM ] in source Amniotic data fluid Erythrocy 11.5 - % Normal No Dec 10 te 17.5 informati 2017 6:00 distribut on in AM ion width source [Entitic data volume] by Automated count Leukocyte 4.8 - K/MM3 Normal No Dec 10 s 10.8 ati 2016 6:00 [#/volume on in AM ] in source Blood data Differential panel, method unspecified - Observa Value Referen Units Interpr Notes Date tion ce etation Range Neutrophi 0 - 8 % Normal No Dec 10 ls.band informati 2017 6:00 form/100 on in AM leukocyte source s in data Blood by Automated count LYMPH 16 10 - 50 % Normal No Dec 10 inform 2017 tion in 6:00 AM source data Monocytes 2 - 9 % Normal No Dec 10 informati 2016 6:00 leukocyte on in AM s in source Blood by data Automated count Platele NORMAL No No No No Dec 10 ts informa informa informa informa 2017 [Presen tion in tion in tion in [...] Low No Dec 10 e 1.30 informati 2017 6:00 [Mass/vol on in AM ume] in [...] 145 mmoL/L Low No Dec 10 [Moles/vo ati 2016 6:00 lume] in on in AM Serum or source Plasma data CBC W Auto Differential panel in Blood Observa Value Referen Units Interpr Notes Date tion ce etation Range Basophils 0 - 0.2 K/MM3 Normal No Dec 092016 2:50 [#/volume on in AM ] in source Blood by data Automated count Basophils 0.1 - 2.0 % Normal No Dec 09 / inform2016 2:50 leukocyte on in AM s in source Blood by data Automated count Eosinophi 0.0 - 0.4 K/mm3 Normal No Dec 09 ls informati 2016 2:50 [#/volume on in AM ] in source Blood by data Automated count Eosinophi 0.1 - % Normal No Dec 09 ls/100 12.0 informati 2016 2:50 leukocyte on in AM s in source Blood by data Automated count Granulocy 1.3 - 8.0 K/mm3 Normal No Dec 09 dominique ati 2016 2:50 [#/volume on in AM ] in source Blood by data Automated count Granulocy 37.0 - % High No Dec 09 dominique/100 80.0 informati 2016 2:50 leukocyte on in AM s in source Blood by data Automated count Hematocri 42.0 - % Low No Dec 09 t [Volume 52.0 ati 2016 2:50 on in AM Fraction] source of Blood data Hemoglobi 14.1 - g/dL Low No Dec 09 n 18.0 ati 2016 2:50 [Mass/vol on in AM ume] in source Blood data Lymphocyt 0.7 - 4.5 K/mm3 Normal No Dec 09 es 2016 2:50 [#/volume on in AM ] in source Unspecifi data ed specimen by Automated count Lymphocyt 10 - 50 % Low No Dec 09 es informati 2016 2:50 [#/volume on in AM ] in source Unspecifi data ed specimen by Automated count Erythrocy 27 - 31.2 pg Normal No Dec 09 te mean ati 2016 2:50 corpuscul on in AM ar [...] 0.1 - 1.0 K/mm3 Normal No Dec 092016 2:50 [#/volume on in AM ] in source Blood by data Automated count Monocytes 1.7 - 9.3 % Normal No Dec 09 informati 2016 2:50 leukocyte on in AM s in source Blood by data Automated count Platelet 7.4 - fl Low No Dec 09 mean 10.4 informati 2016 2:50 volume on in AM [Entitic source volume] data in Blood by Automated count Platelets 142 - 424 K/mm3 Normal No Dec 09 inform2016 2:50 [#/volume on in AM ] in source Blood data Erythrocy 4.6 - 6.2 M/mm3 Normal No Dec 09 dominique ati 2016 2:50 [#/volume on in AM ] in source Amniotic data fluid Erythrocy 11.5 - % Normal No Dec 09 te 17.5 ati 2016 2:50 distribut on in AM ion width source [Entitic data volume] by Automated count Leukocyte 4.8 - K/MM3 Normal No Dec 09 s 10.8 informati 2016 2:50 [#/volume on in AM ] in source Blood data Oxygen saturation in Arterial blood Observa Value Referen Units Interpr Notes Date ti etation Range Oxygen 90 - 100 % Low No Nov 19 saturatio ati 2016 n in on in 10:52 AM Arterial source blood data 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 Observa Value Referen Units Interpr Notes ti ce etation Range VENOUS 80.2 75 - [...] count Eosinophi 0.1 - % Normal No Nov 15 ls/100 12.0 informati 2016 8:25 leukocyte on in AM s in source Blood by data Automated count Granulocy 1.3 - 8.0 K/mm3 Normal No Nov 15 dominique informati 2016 8:25 [#/volume on in AM ] in source Blood by data Automated count Granulocy 37.0 - % Normal No Nov 15 dominique/100 80.0 informati 2016 8:25 leukocyte on in [...] Monocytes 1.7 - 9.3 % Normal No Jeremiah 15 /100 informati 2017 8:25 leukocyte on in AM s in source Blood by data Automated count Platelet 7.4 - fl Normal No Nov 15 mean 10.4 informati 2016 8:25 volume on in AM [Entitic source volume] data in Blood by Automated count Platelets 142 - 424 K/mm3 Normal No Nov 15 informati 2016 8:25 [#/volume on in AM ] in source Blood data Erythrocy 4.6 - 6.2 M/mm3 Low No Nov 15 dominique informati 2016 8:25 [#/volume on in AM ] in source Amniotic data fluid Erythrocy 11.5 - % Normal No Nov 19 te 17.5 informati 2017 8:25 distribut on in AM ion width source [Entitic data volume] by Automated count Leukocyte 4.8 - K/MM3 Normal No Nov 15 s 10.8 informati 2016 8:25 [#/volume on in AM ] in source Blood data Basic metabolic panel in Blood Observa Value Referen Units Interpr Notes Date tion ce etation Range Urea 7 - 18 mg/dL Normal No Nov 19 nitrogen informati 2016 8:10 [Mass/vol on in AM ume] in source Serum or data Plasma Calcium 8.5 - mg/dL Normal No Nov 19 [Mass/vol 10.1 informati 2017 8:10 ume] in on in AM Serum or source Plasma data Chloride 98 - 107 mmoL/L Low No Nov 19 [Moles/vo informati 2017 8:10 lume] in on in AM Serum or source Plasma data Carbon 21.0 - mmoL/L Normal No Nov 19 dioxide, 32.0 informati 2016 8:10 total on in AM [Moles/vo source lume] in data Serum or Plasma Creatinin 0.70 - mg/dL Low No Nov 19 e 1.30 informati 2017 8:10 [Mass/vol on in AM ume] in source Serum or data Plasma Estimated >60 ML/MIN No REFERENCE Nov 19 informati RANGE: 2017 8:10 glomerula on in [...] source source AM data data data data [facility] [employer]\.br\ Interpr etive Stateme nts\.br [...] informa informa informa informa 2015 tion in ti in tion in tion in 9:58 AM receive source source source source d an data data data data examina tion at the [facility] are Vascula r Laborat ory.\.b r\The complet e report can be found in the [facility] Electro pat Medical Record of the patient . EC ECHOCARDIOGRAM COMPLETE W DOPPLER AND COLOR FLOW MAPPING Observa Value Referen Units Interpr Notes Date tion ce etation Range This No No No No Jun 4 patient informa informa informa informa 2015 in in in in 9:08 AM receive source source source source d an data data data data examina tion at the [facility] are Vascula r Laborat ory.\.b r\The complet e report can be found in the [facility] ([facility]) Electro pat Medical Record of the patient .
--- OUTSIDE RECORDS SUMMARY | 2017-04-03 17:20 | External Medical Summary Rpt ---
[...] in 2:34 PM source source data data Bell# 0.6 0.0 - x10(3)/ No No Sep 6 1.3 mcL informa informa 2017 tion in tion in 2:34 PM source source data data Eos# 0.1 0.0 - x10(3)/ No No Sep 6 0.5 mcL informa informa 2017 tion in tion in 2:34 PM source source data data Baso# 0.0 0.0 - x10(3)/ No No Sep 6 0.2 [facility] informa informa 2017 tion in tion in 2:34 PM source source data data CBC Observa Value Referen Units Interpr Notes Date tion ce etation Range LEUKOCY 7.5 4.0 - x10(3)/ No No Sep 6 DOMINIQUE 11.0 [facility] informa informa 2017 tion in tion in 2:34 PM source source data data Erythro 4.33 4.30 - x10(6)/ No No Sep 6 cytes 5.81 [facility] informa inform2016 [#/volu tion in tion [...] - 6.2 M/mm3 Low No Feb 02 dominique informati 2016 1:13 [...] Arterial source blood data 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 EC ECHOCARDIOGRAM COMPLETE W DOPPLER AND COLOR FLOW MAPPING Observa Value Referen Units Interpr Notes Date tion ce etation Range This No No No No Jun 4 patient informa informa informa informa 2015 in in in in 9:08 AM receive source source source source d an data data data data examina tion at the [facility] are Vascula r Laborat ory.\.b r\The complet e report can be found in the [facility] ([facility]) Electro pat Medical Record of the patient .
[2017-04-03 18:11] LABS: HEMOGLOBIN 15.4 g/dL (14.1-18.0); LYMPH # 1.1 K/mm3 (0.7-4.5); LYMPH % 13.1 % (10-50)
[2017-04-03 20:53] VITALS: BP 174/109
--- NOTE | 2017-04-04 07:36 | RADIOLOGY REPORT PS360 ---
CT ABD PELVIS W/O CONTRAST CLINICAL INDICATION: Abdominal tenderness with nausea and vomiting with watery stools, abdominal pain, lower abdominal pain LOWER ABDOMINAL PAIN. WATERY STOOLS ORDERING PHYSICIAN: Ben Sutton MD PATIENT AGE: 61 years COMPARISON: 02/02/2017 TECHNIQUE: Axial images obtained with sagittal and coronal reformats. PROCEDURE: Oral Contrast: None IV Contrast: None . FINDINGS: Lower thorax: Right basilar atelectatic changes are present . There is a 12 mm nodular opacity in the right lower lung zone anteriorly ABDOMEN: Liver: No masses or biliary dilatation. Gallbladder: Cholecystectomy. No ductal dilatation Pancreas: Pancreatic atrophy. No masses Spleen: Unremarkable. Adrenals: Unremarkable Kidneys/ureters: No masses. No renal calculi. No hydronephrosis. No perinephric fluid collections. No ureteral dilatation or obvious ureteral calculi. Stomach bowel: Stone gas-filled distended colon involving the ascending, transverse, and proximal descending colon with redundancy of the colon. Moderate amount stool within the cecum and ascending colon region. The sigmoid colon is normal in caliber. Appendix: No evidence of appendicitis. PELVIS: Reproductive: Unremarkable Bladder: Mildly distended urinary bladder with mild thickening of the bladder wall ABDOMEN & PELVIS: Peritoneum: No abnormal fluid collections. No obvious inflammatory changes. No free air. Lymph nodes: No enlarged lymph nodes apparent. Vasculature: No evidence of abdominal aortic aneurysm. No retroperitoneal hemorrhage evident. Bones: No acute fracture IMPRESSION: 1. 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 As noted previously the sigmoid colon is nondistended. Cannot exclude the possibility of an obstructing lesion in the proximal sigmoid/descending colon area 2. Mildly thickened and distended urinary bladder
== END 2017-04-03 20:54 ==
LOC: ER 16:51
PROVIDERS: General Practice
DX: E87.1 Hypo-osmolality and hyponatremia (principal); J44.9 Chronic obstructive pulmonary disease, unspecified; I10 Essential (primary) hypertension; Z88.6 Allergy status to analgesic agent

== ENCOUNTER 2017-05-19 09:38 | Day surgery (SDC) | payer MEDICARE, MEDICAID ==
[~2017-05-19] VITALS: Ht 188 cm; Wt 86.2 kg
[2017-05-19 10:59] LABS: HEMOGLOBIN 16.8 g/dL (14.1-18.0); LYMPH # 1.1 K/mm3 (0.7-4.5); LYMPH % 13.7 % (10-50)
--- NOTE | 2017-05-19 13:23 | Operative Note ---
Surgeon/Diagnoses Surgeon/Certified Professional Ergonomist(s) Date of procedure: 05/19/17 Surgeon: Lee Poole Diagnoses Pre-op diagnosis: Suspicious skin lesion RIGHT nipple area Post-op diagnosis Same Procedure Procedure Procedure: Excision of skin lesion from RIGHT nipple areolar location (excisional length 2.0 cm) with intermediate complex closure. Indications: HERNANDEZ HICKEY is a 61 year-old Male with a reported schizophrenia who is a resident at [facility]. He is referred by Ely Sanchez for "black spot on nipple". He states that this has been present for a couple of years. However, he does have some minor discomfort and itching. He states that it has occasionally bled. He thought it was a "birthmark". Findings: Raised irregular lesion above the RIGHT nipple on the areola Procedure Description: Consent was obtained and patient taken the operating room. He was positioned in a supine position. Intravenous sedation was achieved. The area was prepped and draped. Lesion was marked with a skin marker for planned crescent elliptical incision transversely. Local anesthetic was infiltrated. Incision was made with grossly negative margins. Full-thickness skin excision was performed excising the irregular lesion. It was sent off as a specimen. Hemostasis was achieved with limited use of electrocautery. Subdermal tissues were closed with a couple of 4-0 Vicryl sutures. Skin was closed with 5-0 fast absorbing plain gut. Clean dry sterile dressing was applied. EBL (ml): 5 Anesthesia: LOCAL mAC Specimens: RIGHT nipple/areolar skin lesion Disposition Disposition: To postop at 1323
[2017-05-19 15:07] VITALS: BP 108/73
== END 2017-05-19 14:45 | disposition home or self-care (01) ==
LOC: SDC 09:38
PROVIDERS: Surgery
PROC: 0HBWXZZ Excision of Right Nipple, External Approach (ICD-10-PCS; principal; 2017-05-19 11:45)
DX: D48.61 Neoplasm of uncertain behavior of right breast (principal)